=== PATIENT | female | born 1940 | race Asian ===

== ENCOUNTER 2025-03-18 00:39 | Inpatient (IN) | payer OTHER, SELFPAY ==
[2025-03-17 20:55] VITALS: BMI 18.9
[2025-03-17 20:57] VITALS: BP 138/81
[2025-03-17 21:22] VITALS: BP 141/78
[2025-03-17 21:45] LABS: Hematocrit 37.8 % (37.0-47.0); Hemoglobin 12.7 g/dL (12.0-16.0); Mean Corp Hgb Conc. 33.6 g/dL (33.0-37.0); Mean Corpuscular Volume 86.3 fL (81.0-99.0); Nucleated Red Blood Cells % 0 %; Platelet Count 177 10^3/uL (130-400); Red Cell Dist. Width 13.7 % (11.5-14.5)
[2025-03-17 22:07] LABS: ALT (SGPT) < 10 U/L (0-35); AST (SGOT) 22 U/L (14-36); Albumin 4.9 g/dl (3.5-5.0); Alkaline Phosphatase 37 U/L (38-126); Blood Urea Nitrogen 70 mg/dl (7-17); Calcium 10.2 mg/dl (8.4-10.2); Carbon Dioxide 26 mmol/L (22-30); Chloride 92 mmol/L (98-107); Estimated Creatinine Clearance 16 ml/min; Glucose 95 mg/dl (70-99); Lipase 536 U/L (23-300); Potassium 3.4 mmol/L (3.5-5.1); Sodium 134 mmol/L (135-145); Total Protein 8.5 g/dl (6.3-8.2); eGFR 27.10
[2025-03-17] MEDS: NSS 500 IV (22:14)
[2025-03-17 23:07] VITALS: BP 132/64
--- NOTE | 2025-03-17 23:09 | ED.GENMED ---
History of Present Illness
General
Chief Complaint: Abdominal Symptoms
Source: patient and family
Exam Limitations: clinical condition
Time Seen by Provider: 03/17/25 21:47
History of Present Illness
History of Present Illness:
Elderly female. Decreased p.o. intake over the last week. Severe weakness. No significant pain headache chest pain shortness of breath or other complaints
Past History
Past History
ED Past Medical History: GERD and HTN
ED Past Surgical History: Gynecological and Other (Cataracts)
Review of Systems
Review of Systems
Constitutional: Reports weight loss; Denies fever or chills
Respiratory: Reports no symptoms
Cardiac: Reports no symptoms
Phy Exam
Physical Exam
Physical Exam:
GENERAL: Alert. Elderly and frail. Generally weak appearing
EYE: Orbits normal.
NECK: Supple, no significant adenopathy.
ENT: Pharynx without erythema
CARDIAC: Regular rate and rhythm without any obvious murmurs.
LUNGS: Clear breath sounds,normal
ABDOMEN: Soft, without focal tenderness or distention
NEUROLOGICAL: Alert grossly nonfocal
SKIN: Warm and dry, no rash or lesion, no discoloration, skin intact.
MUSCULOSKELETAL: No edema,no deformity.Good color
PSYCH: Normal and appropriate interaction.
Course
Orders/Labs/Results
Orders:
Orders
03/17/25 21:34
IV Insert/Care/Rem.- Treatment PRN
03/17/25 21:37
Complete Blood Count/With Diff Urgent
Comprehensive Metabolic Panel Urgent
Lipase Urgent
03/17/25 22:06
Cardiac Monitoring- Treatment ONCE
IV Insert/Care/Rem.- Treatment PRN
0.9% Sodium Chloride 500 ml [Nss] 500 ml IV BOLUS
03/17/25 22:07
Electrocardiogram (*1) Stat
Reason for Study: Abdominal Pain
CT Abd/pel Without Iv Or Oral Urgent
Reason For Exam: Recurrent vomiting
CT Head W/o Iv Contrast Urgent
Comment:
Reason For Exam: Recurrent vomiting/anticoagulated
EKG- Treatment ONCE
03/17/25 23:00
Troponin I Urgent
03/17/25 23:34
Urinalysis Reflex To Culture Urgent
Date Specimen was Collected: 03/17/25
Time Specimen was Collected: 23:33
Urine Microscopic Reflex Cult Urgent
Urine Culture Urgent
WEST Source: U
Specimen Description:
Date Specimen was Collected: 03/17/25
Time Specimen was Collected: 23:33
03/17/25 23:45
0.9% Sodium Chloride 500 ml [Nss] 500 ml IV 150 mls/hr
03/18/25 00:07
Admit/Transfer Patient As Directed
Co-Sign Provider:
Level of Care: Inpatient admission
Assign to:: Medical/Surgical
Physician / Group: Krzysztof
Diagnosis: BERLIN
Reason for Hospitalization: failure to thrive
Expected length of stay greater than two midnights?: Yes
ELOS- Estimated Length of Stay in days: 2
I certify the patient meets the requirements for IP care: Yes
Code Status As Directed
Resuscitation Status: Full Code
PRN Pain Medication Management As Directed
May give lesser potent ordered pain med per pt: Yes
preference::
Protocol:: Medication orders for pain may be administered in a
manner that supports deferring to patient preference
when the pt is:
- Requesting an ordered lesser potent pain medication.
Least to most potent pain medications are defined
as: acetaminophen < NSAID < tramadol < opioids
(morphine, oxycodone, hydromorphone).
- Requesting a lesser dose of the same medication IF
ORDERED.
- Requesting a less intrusive route of administration
if both routes are prescribed by the provider (PO <
IV).
03/18/25 00:14
Ondansetron Injectable [Zofran] 4 mg IV NOW STA
03/18/25 01:00
Flush (0.9% Sodium Chloride) [Flush (Nss)] See Dose Instructions IV PER PROTOCOL
Abnormal Lab Results
03/17/25 03/17/25 03/17/25
21:37 23:00 23:34
MPV 11.5 H fL
(7.4-10.4)
Absolute Lymphs (auto) 1.0 L 10^3/uL
(1.2-3.4)
Neutrophils % 79.7 H %
(42.2-75.2)
Lymphocytes % 12.5 L %
(20.5-51.1)
Sodium 134 L mmol/L
(135-145)
Potassium 3.4 L mmol/L
(3.5-5.1)
Chloride 92 L mmol/L
(98-107)
BUN 70 H mg/dl
(7-17)
Creatinine 1.8 H mg/dL
(0.6-1.0)
Total Bilirubin 1.7 H mg/dl
(0.2-1.3)
Alkaline Phosphatase 37 L U/L
(38-126)
Troponin I 0.063 H* ng/ml
Total Protein 8.5 H g/dl
(6.3-8.2)
Lipase 536 H U/L
(23-300)
Urine Ketones 2+ A
(Negative)
Ur Occult Blood Reflex 1+ A
(Negative)
Leukocyte Esterase Rfl 3+ A
(Negative)
Urine Albumin (Reflex) 1+ A
(Neg - Trace)
03/17/25 21:37
03/17/25 21:37
Vital Signs
Initial and Last Documented VS:
Initial Vital Signs
Temp Pulse Resp BP Pulse Ox
98.5 F 64 15 138/81 96
03/17/25 20:57 03/17/25 20:57 03/17/25 20:57 03/17/25 20:57 03/17/25 20:57
Last Documented Vital Signs
Temp Pulse Resp BP Pulse Ox
98.5 F 71 23 141/65 98
03/17/25 20:57 03/18/25 00:30 03/18/25 00:30 03/18/25 00:00 03/18/25 00:15
*Radiology
Radiology exam reviewed: radiology read reviewed (No acute findings on the head CT. Diverticulosis. No bowel obstruction. No acute abnormalities in the abdomen or pelvis)
*Pulse Oximetry
SaO2: 98
Oxygen Mode of Delivery: Room air
Patient hypoxic: no
*EKG
Interpreted by ED Provider?: Yes
Interpretation: abnormal
Comparison EKG: changes noted
Heart Rate: 68
Rate: normal
Rhythm: sinus and PAC's
[place]: left axis deviation
Interval: normal interval
QRS Pattern: left bundle branch block
Ischemia: non-specific ST changes
*Critical Care Note
Total Time (30-74mins, 75-104mins- exclusive of procedures): Not Applicable
ED Attending Note
-
Portions of this chart may have been created with voice recognition software.� Occasional wrong word or��sound alike� substitutions may have occurred due to the inherent limitations of voice recognition software.
Discharge Plan
Departure
Patient Disposition: Admit
Date of Disposition: 03/17/25
Time of Disposition: 23:36
Presentation/result/management discussed w/ accepting MD/DO: Hospitalist
Discharge Problem:
Anorexia/weakness, Renal insufficiency/dehydration, Possible UTI
Interventions
Interventions:
*General Assessment Last Done: 03/17/25 20:57
*Neglect/Abuse Screening Last Done: 03/17/25 20:57
*ED COVID-19 Vaccine History Last Done: 03/17/25 20:57
ZT-Lirqiy-Iiszrwgvgp Assessment Last Done: 03/17/25 21:46
[2025-03-17 23:32] VITALS: BP 141/81
[2025-03-17 23:42] LABS: Urine Character Clear (Clear)
[2025-03-17 23:48] LABS: Troponin I 0.063 ng/ml
--- NOTE | 2025-03-17 23:52 | HPS.HSE ---
Family Physician
-
Family Physician: Preethi Gallardo MD
Chief Complaint
-
Intractable nausea
History of Present Illness
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
emergency department via grand for decreased p.o. intake.
According to granddaughter patient appears to have been declining over the last 2 to 3 years and specifically since COVID-19. Says she has lost weight especially in the last few months but unable to specify how much. She has decreased interaction
with family members. She also has decreased interest in activities in her food intake. Over the last 2 weeks they have noticed complaints of nausea and very minimal oral intake such that over the last 2 days she has had almost nothing to eat.
Patient reports nausea with anytime she tries to eat anything. She has not had any vomiting. She has not had any abdominal pain or diarrhea. She denies having any melena. There is no hematochezia. There are no night sweats. She has no urinary
symptoms. There is been no medication changes. She does request food but when it is brought by family she declines to eat anything. She has no episodes of difficulty chewing or having aspirations.
In the emergency department she remained afebrile with a temp of 98.5, blood pressure was 140/80 with a pulse of 72 and she is satting 98% on room air. CBC was unremarkable. Electrolytes notable for a sodium of 134 and a potassium of 3.4 with BUN
of 70 and creatinine of 1.8. She had a lipase of 530, total bilirubin of 4.7 otherwise normal LFTs. Albumin was 5 with a total protein of 8.5. Calcium was normal.
UA is pending. ECG shows a sinus rhythm at 68 with left bundle branch block
Medical History
Past Medical History
Past Medical History: Reports Arrhythmia, GERD, HTN, Hypercholesterolemia and Psychiatric
Past Surgical History: Reports None
Social History
Tobacco: Non-smoker
Alcohol: None
Drug: None
Living: With Family
Employment: Retired
Family History
Family History: Not pertinent
Allergies / Home Medications
Allergies reflects when Allergies were last updated in [facility]reads.
Home Medications with original date entered in [facility]reads
Allergy/Medication List:
Allergies
Allergy/AdvReac Type Severity Reaction Status Date / Time
NKA - No Known Allergies Allergy Uncoded 12/08/07 19:39
Lovastatin 20 MG TAKE 1 TABLET BY MOUTH EVERY DAY for 90 Active
Eliquis 5 MG TAKE 1 TABLET BY ORAL ROUTE 2 TIMES EVERY DAY for 90 days Active
Erythromycin .5% apply 1 cm ribbon to right eye topical up to 6 times/day Active
Felodipine ER 5 MG TAKE 1 TABLET BY MOUTH EVERY DAY for 90 days Active
Flonase 50 MCG/ACT 2 spray in each nostril Nasally Once a day for 90 days December, Active
Metoprolol Tartrate 25 MG TAKE 1 TABLET BY MOUTH TWICE A DAY for 90 No further refills without visit. Active
Triamterene-HCTZ 37.5-25 MG TAKE 1 CAPSULE BY MOUTH EVERY DAY IN THE MORNING for 90 Active
Omeprazole 20 MG TAKE 1 CAPSULE BY MOUTH 30 MINUTES BEFORE MORNING MEAL EVERY DAY for 90 days Active
Review of Systems
-
Unable to obtain full review of systems at this time due to: Language Barrier
History Source: Family
Constitutional: Reports Weight Loss
EENT: Reports No Symptoms
Respiratory: Reports No Symptoms
Cardiac: Reports No Symptoms
Abdomen/GI: Reports Nausea and Anorexia
: Reports No Symptoms
Musculoskeletal: Reports No Symptoms
Skin: Reports No Symptoms
Neurological: Reports No Symptoms
Endocrine: Reports No Symptoms
Hematologic/Lymphatic: Reports No Symptoms
Psych: Reports Depression
Physical Exam
Vital Signs
Vital Signs
Temp Pulse Resp BP Pulse Ox
98.5 F 68 15 141/81 98
03/17/25 20:57 08/02/25 23:45 03/17/25 23:09 03/17/25 23:32 03/17/25 23:45
Physical Exam
General: No Apparent Distress; No Well Nourished
HEENT: NormoCephalic, Anicteric, Atraumatic and PERRLA; No Pharyngeal Erythema
Respiratory: Clear
Cardiac: S1/S2 and Regular Rhythm; No Murmur or Rub
GI: Soft, Non Tender, Non Distended and Normal Bowel Sounds; No Organomegaly
Rectal: Deferred by Provider
Musculoskeletal: No Clubbing, No Cyanosis and No Edema
Skin: No Rash
Neuro: Nonfocal/grossly intact
Hematologic/Lymphatic: No Lymphadenopathy
Psych: Anxious
Laboratory Results
-
03/17/25 21:37
03/17/25 21:37
Laboratory Results
Total Bilirubin 1.7 mg/dl (0.2-1.3) H 03/17/25 21:37
AST 22 U/L (14-36) 03/17/25 21:37
ALT < 10 U/L (0-35) 03/17/25 21:37
Alkaline Phosphatase 37 U/L (38-126) L 03/17/25 21:37
Troponin I 0.063 ng/ml H* 03/17/25 23:00
Lipase 536 U/L (23-300) H 03/17/25 21:37
Data Reviewed
-
CT Scan: Report Reviewed by me
Medical Tests (Nuc Med, Echo, EKG etc): Image Personally Visualized and interpreted
Lab Data: Labs Reviewed by me
Old Records: Reviewed
Impression/Plan
-
IMPRESSION:
84-year-old female with past medical history significant for hypertension, hyperlipidemia, atrial fibrillation on anticoagulation presenting to the emergency department with intractable nausea and refusing to eat at home. She is found to have BERLIN
as well as some elevation in lipase with mild total bilirubin elevation to 1.7. CBC is unremarkable. UA is pending. No cardiac symptoms and ECG is unremarkable. CT of the head shows no acute cranial process. CT of the abdomen and pelvis shows
no acute intra-abdominal process.
PLAN:
1. BERLIN -prerenal azotemia stemming from dehydration in the setting of decreased p.o. intake. No fluid losses.
- admit to med/surg
- continue with D5 NS
- check cpk
- renal dose medications
- hold triamterene-hctz for now
- avoid nephrotoxins
2. Nausea - Intractable nasuea versus loss of appetite
- trial of famotidine and ppi
- antiemetics
- IV fluids as above
3. Low appetite - suspect element of depression
- nutritional supplements
- thiamine/folate as above
- check tsh
- trial of mirtazapine
4. AFIB -
- continue metoprlol
- eliqis to 2.5 bid
5. Elevated lipase - Unlikely acute pancreatitis, no abdominal pain.
- repeat lipase after hydration
DVT PPX - on eliquis
Code status - Full Code
[2025-03-18] VITALS (8 sets, daily range): BP systolic 106–141; BP diastolic 51–73; PULSE 57–63; BMI 19.1
[2025-03-18] MEDS: NSS 500 IV (00:11)
[2025-03-18] MEDS: ZOFRAN 4 MG IV (00:40)
[2025-03-18 01:09] LABS: Urine Squamous Cell >30 /LPF (Few); Urine Urothelial Cell >30 /LPF (FEW); Urine White Cell >100 /HPF (0-5)
[2025-03-18] MEDS: KCL 160 MEQ IV (02:25)
[2025-03-18] MEDS: D5/0.9% SODIUM CHLORIDE 1000 IV ×2 (02:25→14:48)
[2025-03-18 07:34] LABS: Hematocrit 36.5 % (37.0-47.0); Hemoglobin 12.3 g/dL (12.0-16.0); Mean Corp Hgb Conc. 33.7 g/dL (33.0-37.0); Mean Corpuscular Volume 88.6 fL (81.0-99.0); Platelet Count 159 10^3/uL (130-400); Red Cell Dist. Width 13.7 % (11.5-14.5)
[2025-03-18 07:57] LABS: Blood Urea Nitrogen 52 mg/dl (7-17); Calcium 9.0 mg/dl (8.4-10.2); Carbon Dioxide 30 mmol/L (22-30); Chloride 98 mmol/L (98-107); Estimated Creatinine Clearance 18 ml/min; Glucose 118 mg/dl (70-99); Lipase 615 U/L (23-300); Potassium 3.0 mmol/L (3.5-5.1); Sodium 138 mmol/L (135-145); eGFR 31.21
[2025-03-18 07:58] LABS: Prealbumin (Transthyretin) 18.8 mg/dl (17.6-36.0)
[2025-03-18 08:30] LABS: TSH 0.04 uIU/ml (0.47-4.68)
[2025-03-18 09:06] LABS: Folate 5.7 ng/ml (2.76-20); Vitamin B12 545 pg/ml (239-931)
[2025-03-18] MEDS: LOPRESSOR 25 MG PO ×2 (10:02→21:53)
[2025-03-18] MEDS: ELIQUIS 2.5 MG PO ×2 (10:02→21:55)
[2025-03-18] MEDS: THIAMINE INJECTION 100 MG IV (10:02)
[2025-03-18] MEDS: PROTONIX 40 MG PO (10:02)
[2025-03-18] MEDS: FOLVITE 1 MG PO (10:02)
[2025-03-18] MEDS: PLENDIL EXTENDED RELEASE 5 MG PO (10:05)
[2025-03-18] MEDS: ROCEPHIN 1000 MG IV (10:06)
[2025-03-18] MEDS: STERILE WATER FOR INJECTION 10 ML IV (10:06)
[2025-03-18] MEDS: KCL 270 MEQ IV (10:06)
[2025-03-18] MEDS: KCL ELIXIR 40 MEQ PO (10:06)
--- NOTE | 2025-03-18 12:57 | W.PN.HOSP.TC ---
Today's Communication/Plan
-
Empiric Abx
F/u Cultures
ECHO
Trend Trop
RUQ Sono
GOC
IVF
F/u Free t4
Assessment / Plan
Assessment / Plan
Physical Exam
General: No Apparent Distress; No Well Nourished
HEENT: NormoCephalic, Anicteric, Atraumatic and PERRLA; No Pharyngeal Erythema
Respiratory: Clear
Cardiac: S1/S2 and Regular Rhythm; No Murmur or Rub
GI: Soft, Non Tender, Non Distended and Normal Bowel Sounds; No Organomegaly
Rectal: Deferred by Provider
Musculoskeletal: No Clubbing, No Cyanosis and No Edema
Skin: No Rash
Neuro: Nonfocal/grossly intact; AAOx1
Hematologic/Lymphatic: No Lymphadenopathy
Psych: Anxious
IMPRESSION:
84-year-old female with past medical history significant for hypertension, hyperlipidemia, atrial fibrillation on anticoagulation; ?Dementia, presenting to the emergency department with intractable nausea and refusing to eat at home. She is found
to have BERLIN as well as some elevation in lipase with mild total bilirubin elevation to 1.7. CBC is unremarkable. UA is pending. No cardiac symptoms and ECG is unremarkable. CT of the head shows no acute cranial process. CT of the abdomen and
pelvis shows no acute intra-abdominal process.
PLAN:
#BERLIN v CKD
-Most likely prerenal azotemia stemming from dehydration in the setting of decreased p.o. intake.
- Can continue with D5 NS as not eating
- renal dose medications
- hold triamterene-hctz
- avoid nephrotoxins
-Monitor
#?UTI
-initiate empiric abx
-f/u cultures
#Acute v Acute on Chronic Metabolic Encephalopathy
-Worsening dementia +/- Infectious etiology (?UTI)
- TSH low - f/u reflex free t4
-Treat as above w/ abx
-GOC
-Has had chronic deterioration of memory over the last few months
#Hypokalemia
- Monitor and replete
#Low troponin
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
� Trend troponins until peak
� No chest pain
- F/u ECHO
#Nausea - Intractable nasuea versus loss of appetite
- trial of famotidine and ppi
- antiemetics
- IV fluids as above
-Lipase mildly elevated but not sig - CT imaging unremarkable
-with Elev Bili, f/u RUQ Sono, Direct Bili
#Low appetite - suspect element of depression
- nutritional supplements
- thiamine/folate as above
- F/u free t4
- trial of mirtazapine
#AFIB -
- continue metoprolol
- Eliquis to 2.5 bid
# Elevated lipase - Unlikely acute pancreatitis, no abdominal pain.
--see plan above
DVT PPX - on eliquis
Code status - Full Code
Total time spent on today's encounter was 51 minutes which included time spent in counseling the patient/family regarding diagnosis and treatment plan as listed above, goals of care, and symptom management. Case was discussed with nursing staff,
specialists, and care coordinators/case management. All labs and imaging personally reviewed by me. Remainder the time spent in detailed review of previous records, lab data, imaging, and other medical provider documentation.
Anticipated Discharge: 24 - 48 hours
Subjective/Interval History
-
Date of Service: March 18, 2025
no acute events
Objective Data
-
Labs:
Laboratory Results
03/18/25
07:05
WBC 7.5
Hgb 12.3
Hct 36.5 L
Plt Count 159
Sodium 138
Potassium 3.0 L
Chloride 98
Carbon Dioxide 30
BUN 52 H
Creatinine 1.6 H
Glucose 118 H
Calcium 9.0
Vital Signs:
Vital Signs
Temp Pulse Resp BP Pulse Ox
97.7 F 60 16 134/69 99
03/18/25 07:37 03/18/25 07:37 03/18/25 07:37 03/18/25 07:37 03/18/25 07:37
I&O
03/17/25 03/18/25 03/19/25
06:59 06:59 06:59
Intake Total 120 / 120
Balance 120 / 120
Review of Systems
-
History Source: Patient
All other systems: Not reviewed unless documented
Data Reviewed
-
CT Scan: Report Reviewed by me
Labs: Labs Reviewed by me
--- NOTE | 2025-03-18 15:07 | PTCARENOTE ---
Patient OOB to bathroom with assist x1. Patient is weak and unsteady. Family stays with patient 08/03. Patient speaks Mongolian, family at bedside to translate. Patient is only oriented to her self per family. Patient has been confused for quite a
while per son. Patient is tolerating 10% of meals, only eating part of a biscuit and water.
[2025-03-18 15:47] LABS: Troponin I 0.062 ng/ml
[2025-03-18] MEDS: PEPCID 20 MG IV (21:54)
[2025-03-18] MEDS: REMERON 7.5 MG PO (21:54)
[2025-03-18] MEDS: NSS (PRESERVATIVE FREE) 8 ML IV (21:54)
[2025-03-18 23:03] LABS: Troponin I 0.046 ng/ml
--- NOTE | 2025-03-19 01:24 | PTCARENOTE ---
Addendum entered by Kanika Nguyen RN 03/19/25 01:33:
Cantonese night warehouse selector utilized
Original Note:
Pt agitated, trying to get OOB, undress, pantomiming tears/crying. flyer repairer utilized, pt verbalizing wanting to go to [facility] alone and does not want any help because she is spanish and that's no how they do things. Repeating the same
thing to the night warehouse selector, unable to reorient successfully. Assisted back to bed, pt apologizing and tearful. Bed alarm active for safety.
[2025-03-19] MEDS: D5/0.9% SODIUM CHLORIDE 1000 IV ×2 (03:34→23:05)
[2025-03-19 06:00] VITALS: BMI 18.9
[2025-03-19 07:33] VITALS: BP 125/67
--- NOTE | 2025-03-19 07:33 | W.PN.HOSP.TC ---
Today's Communication/Plan
-
cont IVF, abx
Replete Electrolytes
Rispderal 1:1 prn agitation, avoid restraints as possible
cont Mirtazapine HS
Assessment / Plan
Assessment / Plan
Physical Exam
General: No Apparent Distress; Appears relatively comfortable, skinny appearance
HEENT: NormoCephalic, Anicteric, Atraumatic and PERRLA
Respiratory: Clear to auscultation b/l
Cardiac: S1/S2 and Regular Rhythm; No Murmur or Rub
GI: Soft, Non Tender, Non Distended and Normal Bowel Sounds
Musculoskeletal: No Clubbing, No Cyanosis and No Edema
Skin: No Rash
Neuro: AAOx1 oriented only to self, confused
Psych: Relatively calm but sundowning as day progresses
IMPRESSION:
84F HTN, HLD, afib Eliquis, Dementia (not formally diagnosed per family but evidence cognitive decline past few months), p/w intractable nausea and refusing to eat at home. Found to have BERLIN as well as some elevation in lipase with mild total
bilirubin elevation to 1.7. CBC unremarkable. UA noted possible UTI. CT of the head showed no acute cranial process. CT of the abdomen and pelvis showed no acute intra-abdominal process.
PLAN:
#BERLIN
- Cr high 1.8 trending down
- Most likely prerenal azotemia stemming from dehydration in the setting of decreased p.o. intake.
- cont IVF D5NS, poor oral intake
- renal dose medications
- hold home triamterene-hctz
- avoid nephrotoxins
- Monitor
#Possible UTI
-started on Ceftriaxone 03/18, transitioned to Augmentin
-f/u urine culture
#Acute v Acute on Chronic Metabolic Encephalopathy
- possible Worsening dementia +/- Infectious etiology (UTI), possibly compounded with hospital associated delirium
-TSH low but T4 wnl
-cont Abx as above
-GOC
-had chronic deterioration of memory over the last few months as per family
-1:1 prn agitation/confusion, risperdal prn, avoid restraints if possible (likely to exacerbate confusion/agitation)
#Hypokalemia
- Monitor and replete
#Troponin elevation
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
� Troponin peak 0.063 since trended down
� Denies chest pain
- ECHO appreciated EF 50% severe tricuspid regurgitation
#Nausea - Intractable nasuea versus loss of appetite
- trial of famotidine and ppi
- antiemetics
- IV fluids as above
-Lipase mildly elevated but not sig - CT imaging and Abd US unremarkable
#Low appetite - suspect element of depression
- nutritional supplements
- thiamine/folate as above
- trial of mirtazapine
- police commanding officer jeanneal appreciated moderate protein calorie Malnutrition
#Hypokalemia
#Hypophosphatemia
#Hypomagnesemia
Possible Refeeding syndrome
monitor and replete electrolytes as necessary
#QT Prolongation
since significantly improved/resolved following repletion electrolytes
#AFIB
- continue metoprolol
- Eliquis to 2.5 bid
DVT PPX - on eliquis
Code status - Full Code
Discussed with patient (family providing Cantonese Translation), patient's son Rk, and patient's Granddaughter Ilda (police commanding officer)
I spent a total of 50 minutes with the patient or on the floor. More than 50% of this time involved counseling and coordination of care.
Anticipated Discharge: 24 - 48 hours
Subjective/Interval History
-
Date of Service: March 19, 2025
No acute distress, appears relatively comfortable, some confusion noted throughout the day, . Patient removed her IV twice this morning. Family (son Rk) at bedside providing Cantonese translation.
Objective Data
-
Labs:
Laboratory Results
03/19/25
06:00
WBC Pending
Hgb Pending
Hct Pending
Plt Count Pending
Sodium Pending
Potassium Pending
Chloride Pending
Carbon Dioxide Pending
BUN Pending
Creatinine Pending
Glucose Pending
Calcium Pending
Total Bilirubin Pending
AST Pending
ALT Pending
Alkaline Phosphatase Pending
Vital Signs:
Vital Signs
Temp Pulse Resp BP Pulse Ox
97.4 F 61 14 125/67 99
03/19/25 07:33 03/19/25 07:33 03/19/25 07:33 03/19/25 07:33 03/19/25 07:33
I&O
03/18/25 03/19/25 03/20/25
06:59 06:59 06:59
Intake Total 120 / 120 1250 / 1250
Balance 120 / 120 1250 / 1250
[2025-03-19] MEDS: ELIQUIS 2.5 MG PO ×2 (08:40→21:14)
[2025-03-19] MEDS: LOPRESSOR 25 MG PO (08:42)
[2025-03-19] MEDS: FOLVITE 1 MG PO (08:42)
[2025-03-19] MEDS: PROTONIX 40 MG PO (08:42)
[2025-03-19] MEDS: PLENDIL EXTENDED RELEASE 5 MG PO (08:42)
[2025-03-19 09:03] LABS: Hematocrit 42.4 % (37.0-47.0); Hemoglobin 13.6 g/dL (12.0-16.0); Mean Corp Hgb Conc. 32.1 g/dL (33.0-37.0); Mean Corpuscular Volume 90.0 fL (81.0-99.0); Platelet Count 190 10^3/uL (130-400); Red Cell Dist. Width 13.9 % (11.5-14.5)
[2025-03-19 09:39] LABS: AST (SGOT) 25 U/L (14-36); Albumin 4.3 g/dl (3.5-5.0); Alkaline Phosphatase 35 U/L (38-126); Blood Urea Nitrogen 34 mg/dl (7-17); Calcium 9.0 mg/dl (8.4-10.2); Carbon Dioxide 23 mmol/L (22-30); Chloride 103 mmol/L (98-107); Estimated Creatinine Clearance 20 ml/min; Glucose 99 mg/dl (70-99); Potassium 2.8 mmol/L (3.5-5.1); Sodium 141 mmol/L (135-145); Total Protein 7.7 g/dl (6.3-8.2); eGFR 36.64
[2025-03-19] MEDS: THIAMINE INJECTION IV (09:42)
[2025-03-19 10:24] LABS: ALT (SGPT) < 30 U/L (0-35)
[2025-03-19 10:44] LABS: Magnesium 1.5 mg/dl (1.6-2.3)
[2025-03-19] MEDS: AUGMENTIN 500 MG/125 MG 1 TABLET PO ×2 (11:07→21:13)
[2025-03-19] MEDS: KCL 40 MEQ PO (11:07)
[2025-03-19] MEDS: MAGNESIUM OXIDE 500 MG PO (11:07)
[2025-03-19] MEDS: VITAMIN B1 100 MG PO (11:07)
[2025-03-19] MEDS: MAGNESIUM SULFATE 50 IV (11:57)
[2025-03-19 12:47] LABS: HDL Cholesterol 53 mg/dl; LDL Cholesterol, Calculated 69 mg/dl; Very Low Density Lipoprotein 33 mg/dl (0-30)
[2025-03-19] MEDS: POTASSIUM PHOSPHATE 259.0909 MEQ IV (15:17)
[2025-03-19 15:41] VITALS: BMI 18.9
[2025-03-19 15:53] VITALS: BP 122/71
--- NOTE | 2025-03-19 16:04 | CM ---
Pt lives with her daughter and other family members in a 2 story home. No entry steps through the garage and the front door. Family stay with patient 08/03 due to her inability to manage on her own. Pt has been confused 'for quite awhile' per son.
She has not been eating much, maybe eating 10% of her meals.
Consult received for advance directive for this patient. This patient is not able to complete an advance directive due to her cognitive status. Next of kin would be the decision maker.
Goals of Care discussion is a consideration at this time.
CM will continue to follow to assist with coordination of discharge plan.
[2025-03-19] MEDS: ATIVAN 0.25 MG PO (17:11)
[2025-03-19 20:37] LABS: Blood Urea Nitrogen 27 mg/dl (7-17); Calcium 8.1 mg/dl (8.4-10.2); Carbon Dioxide 26 mmol/L (22-30); Chloride 105 mmol/L (98-107); Estimated Creatinine Clearance 23 ml/min; Glucose 77 mg/dl (70-99); Magnesium 2.3 mg/dl (1.6-2.3); Potassium 3.7 mmol/L (3.5-5.1); Sodium 140 mmol/L (135-145); eGFR 44.08
[2025-03-19 21:11] VITALS: BP 124/67
[2025-03-19] MEDS: KCL 20 MEQ PO (21:14)
[2025-03-19] MEDS: LOPRESSOR 12.5 MG PO (21:15)
[2025-03-19] MEDS: PEPCID 10 MG PO (21:15)
[2025-03-19] MEDS: REMERON 7.5 MG PO (21:16)
[2025-03-20] MEDS: RISPERDAL 0.25 MG PO ×5 (00:07→23:18)
[2025-03-20 00:09] VITALS: BP 131/68
[2025-03-20 08:00] VITALS: BP 118/55
--- NOTE | 2025-03-20 08:00 | W.PN.HOSP.TC ---
Today's Communication/Plan
-
Dietary supplement
Risperdal scheduled and prn
IVF support
PT/OT
Assessment / Plan
Assessment / Plan
Physical Exam
General: No Apparent Distress; Appears relatively comfortable, skinny appearance
HEENT: NormoCephalic, Anicteric, Atraumatic and PERRLA
Respiratory: Clear to auscultation b/l
Cardiac: S1/S2 and Regular Rhythm; No Murmur or Rub
GI: Soft, Non Tender, Non Distended and Normal Bowel Sounds
Musculoskeletal: No Clubbing, No Cyanosis and No Edema
Skin: No Rash
Neuro: Lethargic arousable, oriented only to self, confused
Psych: Relatively calm but sundowning as day progresses
IMPRESSION:
84F HTN, HLD, afib Eliquis, Dementia (not formally diagnosed per family but evidence cognitive decline past few months), p/w intractable nausea and refusing to eat at home. Found to have BERLIN as well as some elevation in lipase with mild total
bilirubin elevation to 1.7. CBC unremarkable. UA noted possible UTI. CT of the head showed no acute cranial process. CT of the abdomen and pelvis showed no acute intra-abdominal process.
PLAN:
#BERLIN
- Cr high 1.8 trending down/resolving
- Most likely prerenal azotemia stemming from dehydration in the setting of decreased p.o. intake.
- cont IVF D5NS, poor oral intake
- renal dose medications
- hold home triamterene-hctz
- avoid nephrotoxins
- Monitor
#Possible UTI
-started on Ceftriaxone 03/18, transitioned to Augmentin
-urine culture noted no significant growth
#Acute v Acute on Chronic Metabolic Encephalopathy
- possible Worsening dementia +/- Infectious etiology (UTI), possibly compounded with hospital associated delirium
-TSH low but T4 wnl
-cont Abx as above
-had chronic deterioration of memory over the last few months as per family
-1:1 prn agitation/confusion, risperdal prn and scheduled 0.25 qpm, avoid restraints if possible (likely to exacerbate confusion/agitation)
#Hypokalemia
- Monitor and replete
#Troponin elevation
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
� Troponin peak 0.063 since trended down
� Denies chest pain
- ECHO appreciated EF 50% severe tricuspid regurgitation
#Nausea - Intractable nasuea versus loss of appetite
- trial of famotidine and ppi
- antiemetics
- IV fluids as above
- Lipase mildly elevated but not sig - CT imaging and Abd US unremarkable
#Low appetite - suspect element of depression
- nutritional supplements
- thiamine/folate as above
- trial of mirtazapine
- mine safety director eval appreciated moderate protein calorie Malnutrition
#Hypokalemia
#Hypophosphatemia
#Hypomagnesemia
Possible Refeeding syndrome
monitor and replete electrolytes as necessary
#QT Prolongation
since significantly improved/resolved following repletion electrolytes
#paroxysmal Afib
- continue metoprolol
- Eliquis to 2.5 bid
DVT PPX - on eliquis
Code status - Full Code
Discussed with patient's son Rk, and patient's Granddaughter Jerri (mine safety director)
I spent a total of 45 minutes with the patient or on the floor. More than 50% of this time involved counseling and coordination of care.
Anticipated Discharge: 24 - 48 hours
Subjective/Interval History
-
Date of Service: March 20, 2025
Confused lethargic. Son Rk and daughter Jerri present during evaluation
Objective Data
-
Labs:
Laboratory Results
03/19/25 03/20/25
20:10 06:00
WBC Pending
Hgb Pending
Hct Pending
Plt Count Pending
Sodium 140 Pending
Potassium 3.7 D Pending
Chloride 105 Pending
Carbon Dioxide 26 Pending
BUN 27 H Pending
Creatinine 1.2 H Pending
Glucose 77 Pending
Calcium 8.1 L Pending
Vital Signs:
Vital Signs
Temp Pulse Resp BP Pulse Ox
97.5 F 60 18 131/68 99
03/20/25 00:09 03/20/25 00:09 03/20/25 00:09 03/20/25 00:09 03/20/25 00:09
I&O
03/19/25 03/20/25 03/21/25
06:59 06:59 06:59
Intake Total 1250 / 1250 840 / 840
Balance 1250 / 1250 840 / 840
[2025-03-20] MEDS: FOLVITE 1 MG PO (09:36)
[2025-03-20] MEDS: VITAMIN B1 100 MG PO (09:36)
[2025-03-20] MEDS: KCL 20 MEQ PO (09:37)
[2025-03-20] MEDS: PROTONIX 40 MG PO (09:37)
[2025-03-20] MEDS: PLENDIL EXTENDED RELEASE 5 MG PO (09:37)
[2025-03-20] MEDS: AUGMENTIN 500 MG/125 MG 1 TABLET PO (09:37)
[2025-03-20] MEDS: ELIQUIS 2.5 MG PO (09:37)
[2025-03-20] MEDS: LOPRESSOR 12.5 MG PO (09:38)
[2025-03-20] MEDS: D5/0.9% SODIUM CHLORIDE 1000 IV ×2 (11:46→22:40)
--- NOTE | 2025-03-20 12:24 | CM ---
Patient seen at bedside with son London & grand-daughter Jerri
patient speaks Cantonese
PT/OT ordered
Await evals
PLAN: TBD, Await PT/OT evals, CM to follow for needs
[2025-03-20 12:38] VITALS: BP 105/65; PULSE 78
[2025-03-20 13:19] LABS: Hematocrit 39.2 % (37.0-47.0); Hemoglobin 13.3 g/dL (12.0-16.0); Mean Corp Hgb Conc. 33.9 g/dL (33.0-37.0); Mean Corpuscular Volume 86.7 fL (81.0-99.0); Platelet Count 163 10^3/uL (130-400); Red Cell Dist. Width 14.4 % (11.5-14.5)
--- NOTE | 2025-03-20 14:15 | PN.CDI ---
CDI
- -
CDI:
Physician Documentation Request
Admit Date: 03/18/25 00:39
Dear Doctor Abdifatah,
Patient presented with decrease PO intake. Noted history of atrial fibrillation on metoprolol and eliquis.
03/17 and 03/19 signed EKGs show sinus rhythm.
Please provide further specificity regarding atrial fibrillation:
Paroxysmal atrial fibrillation - terminates spontaneously or with intervention within 7 days of onset
Persistent atrial fibrillation - episodes of continuous AF that last more than 7 days and do not self-terminate
Other - please specify
Use of terms such as suspected, likely, concern for, or probable (associated with a specific diagnosis that is being evaluated, monitored, or treated as if it exists) are acceptable and can be coded in the inpatient setting, when documented at the
time of discharge.
Thank you,
Mandy Huang RN, BSN
CDI Specialist
tiger text
Please use your independent medical judgment in providing your response.
[2025-03-20 15:55] VITALS: BP 101/64
[2025-03-20 16:28] LABS: Blood Urea Nitrogen 20 mg/dl (7-17); Calcium 8.1 mg/dl (8.4-10.2); Carbon Dioxide 26 mmol/L (22-30); Chloride 108 mmol/L (98-107); Estimated Creatinine Clearance 28 ml/min; Glucose 96 mg/dl (70-99); Magnesium 1.9 mg/dl (1.6-2.3); Potassium 3.6 mmol/L (3.5-5.1); Sodium 141 mmol/L (135-145); eGFR 54.87
[2025-03-20] MEDS: LOPRESSOR PO (22:22)
[2025-03-20] MEDS: REMERON 7.5 MG PO (22:42)
[2025-03-20] MEDS: AUGMENTIN 500 MG/125 MG PO ×2 (22:42→22:54)
[2025-03-20] MEDS: PEPCID PO (22:48)
[2025-03-20] MEDS: KCL PO (22:48)
[2025-03-20] MEDS: ELIQUIS PO (22:48)
[2025-03-20] MEDS: NEUTRA-PHOS POWDER PACKET PO (22:53)
[2025-03-21 02:00] VITALS: BP 143/79
--- NOTE | 2025-03-21 07:34 | W.PN.HOSP.TC ---
Today's Communication/Plan
-
Risperdal increased to 0.5 mg qpm
IVF completed
neg urine cx, abx discontinued, monitor off
discharge planning
Assessment / Plan
Assessment / Plan
Physical Exam
General: No Apparent Distress; Appears relatively comfortable, skinny appearance
HEENT: NormoCephalic, Anicteric, Atraumatic and PERRLA
Respiratory: Clear to auscultation b/l
Cardiac: S1/S2 and Regular Rhythm; No Murmur or Rub
GI: Soft, Non Tender, Non Distended and Normal Bowel Sounds
Musculoskeletal: No Clubbing, No Cyanosis and No Edema
Skin: No Rash
Neuro: Lethargic arousable, oriented only to self, confused
Psych: Relatively calm but sundowning as day progresses
IMPRESSION:
84F HTN, HLD, afib Eliquis, Dementia (not formally diagnosed per family but evidence cognitive decline past few months), p/w intractable nausea and refusing to eat at home. Found to have BERLIN as well as some elevation in lipase with mild total
bilirubin elevation to 1.7. CBC unremarkable. UA noted possible UTI. CT of the head showed no acute cranial process. CT of the abdomen and pelvis showed no acute intra-abdominal process.
PLAN:
#BERLIN
- Cr high 1.8 trending down/resolving
- Most likely prerenal azotemia stemming from dehydration in the setting of decreased p.o. intake.
- IVF D5NS completed
- hold home triamterene-hctz, would dc on discharge, bp well controlled without
- avoid nephrotoxins
- Monitor
#Possible UTI less likely/ruled out
-started on Ceftriaxone 03/18, transitioned to Augmentin
-urine culture noted no significant growth
-abx discontinued, monitor off
#Acute v Acute on Chronic Metabolic Encephalopathy
- possible Worsening dementia +/- Infectious etiology (UTI), likely compounded with hospital associated delirium
- TSH low but T4 wnl
- had chronic deterioration of memory over the last few months as per family
- 1:1 prn agitation/confusion, risperdal prn and scheduled 0.25 qpm increased to 0.5 qpm, avoid restraints if possible (likely to exacerbate confusion/agitation)
#Hypokalemia
- Monitor and replete
#Troponin elevation
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
� Troponin peak 0.063 since trended down
� Denies chest pain
- ECHO appreciated EF 50% severe tricuspid regurgitation
#Nausea - Intractable nasuea versus loss of appetite
- trial of famotidine and ppi
- antiemetics
- IV fluids as above
- Lipase mildly elevated but not sig - CT imaging and Abd US unremarkable
#Low appetite - suspect element of depression
- nutritional supplements
- thiamine/folate as above
- trial of mirtazapine
- car hiker tobin appreciated moderate protein calorie Malnutrition
#Hypokalemia
#Hypophosphatemia
#Hypomagnesemia
Possible Refeeding syndrome
monitor and replete electrolytes as necessary
#QT Prolongation
since significantly improved/resolved following repletion electrolytes
#paroxysmal Afib
- continue metoprolol
- Eliquis to 2.5 bid
DVT PPX - on eliquis
Code status - Full Code
Discussed with patient's son Rk and patient's Granddaughter Jerri (car hiker)
I spent a total of 40 minutes with the patient or on the floor. More than 50% of this time involved counseling and coordination of care.
Anticipated Discharge: 24 - 48 hours
Subjective/Interval History
-
Date of Service: March 21, 2025
Altered mental status persists. Fluctuating throughout the day. Refused morning meds. Couldn't recognize her granddaughter Jerri
Objective Data
-
Labs:
Laboratory Results
03/21/25
06:00
WBC Pending
Hgb Pending
Hct Pending
Plt Count Pending
Sodium Pending
Potassium Pending
Chloride Pending
Carbon Dioxide Pending
BUN Pending
Creatinine Pending
Glucose Pending
Calcium Pending
Vital Signs:
Vital Signs
Temp Pulse Resp BP Pulse Ox
98.6 F 105 18 143/79 94
03/21/25 02:00 03/21/25 02:00 03/21/25 02:00 03/21/25 02:00 03/21/25 02:00
I&O
03/20/25 03/21/25 03/22/25
06:59 06:59 06:59
Intake Total 840 / 840 1200 / 1200 120 / 120
Balance 840 / 840 1200 / 1200 120 / 120
[2025-03-21 09:29] VITALS: BP 123/86
[2025-03-21] MEDS: D5/0.9% SODIUM CHLORIDE 1000 IV (09:29)
[2025-03-21] MEDS: KCL PO (09:30)
[2025-03-21] MEDS: NEUTRA-PHOS POWDER PACKET 250 MG PO ×3 (09:31→17:05)
[2025-03-21] MEDS: LOPRESSOR PO ×3 (10:18→22:27)
[2025-03-21] MEDS: FOLVITE PO (10:18)
[2025-03-21] MEDS: ELIQUIS PO ×3 (10:18→22:27)
[2025-03-21] MEDS: AUGMENTIN 500 MG/125 MG PO (10:18)
[2025-03-21] MEDS: VITAMIN B1 PO (10:19)
[2025-03-21] MEDS: PROTONIX PO (10:19)
[2025-03-21] MEDS: PLENDIL EXTENDED RELEASE PO (10:19)
[2025-03-21] MEDS: RISPERDAL 0.25 MG PO (13:21)
--- NOTE | 2025-03-21 14:53 | CM ---
Addendum entered by Sharifa Carrillo 03/21/25 16:45:
Family had identified [facility] in [facility] as a possible option if 24/7 care cannot be arranged. Referral sent via [employer]. ALISSON to f/u with family in AM to determine final plan.
Addendum entered by Sharifa Carrillo 03/21/25 15:04:
ALISSON spoke with Helene Muir Coordinator for '[place] patients'. She has contacted pt's family who will need to call the insurance company to request the additional hours. Helene provided them with the information they need for the request.
Pt's daughter (not the one who has been visiting) takes care of the insurance issues and will be contacting the insurance company to request the additional hours.
[facility] has staff on standby for tomorrow night pending insurance approval.
Anticipate discharge tomorrow with [facility].
Original Note:
ALISSON met with pt and family. They advised that Daly will be returning home at discharge with [facility] who have been providing 10 hours of caregiver services and are requesting 24 hour care due to her confusion. Per family, they were
advised by a doctor that it would likely be helpful for Daly to return to her familiar setting which may reverse some of the confusion she is experiencing.
ALISSON called [facility] to discuss family request. They are going to review with the team and call me back. I also left a message for the coordinator (Elizabeth Guzman) about the family request for [address] services[address] Gardiner updated via [facility]; anticipate discharge on Wednesday.
[2025-03-21 16:03] VITALS: BP 118/68
[2025-03-21] MEDS: RISPERDAL 0.5 MG PO (17:50)
[2025-03-21] MEDS: REMERON PO ×2 (21:01→22:27)
[2025-03-21] MEDS: NEUTRA-PHOS POWDER PACKET PO ×2 (21:02→22:27)
--- NOTE | 2025-03-22 05:57 | PTCARENOTE ---
Addendum entered by Farida Hunt RN 03/22/25 06:42:
SENIOR MORTGAGE UNDERWRITER ok'd pt not having another IV placed.
Original Note:
Pt refusing medications and all care. Pt screams, pulls away and becomes tearful when staff approach. Unable to obtain vital signs. Pt pulled out IV. Language line utilized although pt would not communicate back. bed alarm intact. plan of care
ongoing.
[2025-03-22 06:23] VITALS: BMI 20.1
--- NOTE | 2025-03-22 07:29 | W.PN.HOSP.TC ---
Today's Communication/Plan
-
Safe discharge planning, possible discharge tomorrow when family can arranged 24/ supervision
Psych eval
Assessment / Plan
Assessment / Plan
Physical Exam
General: No Apparent Distress; Appears relatively comfortable, skinny appearance
HEENT: NormoCephalic, Anicteric, Atraumatic and PERRLA
Respiratory: Clear to auscultation b/l
Cardiac: S1/S2 and Regular Rhythm; No Murmur or Rub
GI: Soft, Non Tender, Non Distended and Normal Bowel Sounds
Musculoskeletal: No Clubbing, No Cyanosis and No Edema
Skin: No Rash
Neuro: Alert oriented only to self, confused
Psych: Relatively calm but sundowning as day progresses, refusing meds/care
IMPRESSION:
84F HTN, HLD, afib Eliquis, Dementia (not formally diagnosed per family but evidence cognitive decline past few months), p/w intractable nausea and refusing to eat at home. Found to have BERLIN as well as some elevation in lipase with mild total
bilirubin elevation to 1.7. CBC unremarkable. UA noted possible UTI. CT of the head showed no acute cranial process. CT of the abdomen and pelvis showed no acute intra-abdominal process.
PLAN:
#BERLIN
- Cr high 1.8 trending down/resolving
- Most likely prerenal azotemia stemming from dehydration in the setting of decreased p.o. intake.
- IVF D5NS completed
- hold home triamterene-hctz, would dc on discharge, bp well controlled without
- avoid nephrotoxins
- Monitor
#Possible UTI less likely/ruled out
-started on Ceftriaxone 03/18, transitioned to Augmentin
-urine culture noted no significant growth
-abx since discontinued, monitor off
#Acute v Acute on Chronic Metabolic Encephalopathy
- possible Worsening dementia +/- Infectious etiology (UTI), likely compounded with hospital associated delirium
- TSH low but T4 wnl
- had chronic deterioration of memory over the last few months as per family
- 1:1 prn agitation/confusion, risperdal prn and scheduled 0.25 qpm increased to 0.5 qpm, avoid restraints if possible (likely to exacerbate confusion/agitation)
- Psych eval appreciated
#Hypokalemia
- Monitor and replete
#Troponin elevation
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
� Troponin peak 0.063 since trended down
� Denies chest pain
- ECHO appreciated EF 50% severe tricuspid regurgitation
#Nausea - Intractable nasuea versus loss of appetite
- Nausea appears resolved at this time, oral intake improving
- trial of famotidine and ppi completed
- antiemetics
- IVF completed
- Lipase mildly elevated but not sig - CT imaging and Abd US unremarkable
#Low appetite - suspect element of depression
- nutritional supplements
- thiamine/folate as above
- trial of mirtazapine
- social worker eval appreciated moderate protein calorie Malnutrition
- oral intake improving
#Hypokalemia
#Hypophosphatemia
#Hypomagnesemia
Possible Refeeding syndrome
Electrolytes repleted
#QT Prolongation
since significantly improved/resolved following repletion electrolytes
#paroxysmal Afib
- continue metoprolol
- Eliquis to 2.5 bid
DVT PPX - on eliquis
Code status - Full Code
Discussed with patient's son Rk
I spent a total of 40 minutes with the patient or on the floor. More than 50% of this time involved counseling and coordination of care.
Anticipated Discharge: Within 24 hours
Subjective/Interval History
-
Date of Service: March 22, 2025
confused. refusing meds.
Objective Data
-
Vital Signs:
Vital Signs
Temp Pulse Resp BP Pulse Ox
99.0 F 100 20 118/68 99
03/21/25 16:03 03/21/25 16:03 03/21/25 16:03 03/21/25 16:03 03/21/25 16:03
I&O
03/21/25 03/22/25 03/23/25
06:59 06:59 06:59
Intake Total 1200 / 1200 480 / 480
Balance 1200 / 1200 480 / 480
[2025-03-22] MEDS: RISPERDAL PO ×3 (08:18→18:24)
[2025-03-22] MEDS: ELIQUIS PO ×3 (08:52→21:47)
[2025-03-22] MEDS: FOLVITE PO ×2 (08:52→10:27)
[2025-03-22] MEDS: PROTONIX PO ×2 (08:52→10:27)
[2025-03-22] MEDS: PLENDIL EXTENDED RELEASE PO ×2 (08:52→10:27)
[2025-03-22] MEDS: VITAMIN B1 PO ×2 (08:52→10:28)
[2025-03-22] MEDS: LOPRESSOR PO ×3 (08:53→21:47)
[2025-03-22 10:15] VITALS: BP 138/84
--- NOTE | 2025-03-22 11:00 | PTCARENOTE ---
Pt refusing all morning meds and care. Pt hits hand away when anyone comes near. Son @bedside trying to help and grandaughter called via Face Time. Pt allowed vital signs but still refusing medications. MD made aware. Bed alarm in place and son
@bedside to assist with needs. POC ongoing.
[2025-03-22 15:00] VITALS: BP 122/79
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
[2025-03-22] MEDS: REMERON PO (21:47)
[2025-03-23 05:43] VITALS: BMI 20.3
--- NOTE | 2025-03-23 05:59 | PTCARENOTE ---
Addendum entered by Farida Hunt RN 03/23/25 06:59:
*Vitals unable to obtain during this shift*
Original Note:
Pt continues to refuse all meds and care. Vital signs obtained. Pt in tears and screams when staff approach. Able to communicate with translation device. Pt stated 'I am scared and would like to go home. I need to take the metro back to my family.'
Pt unable to be reoriented. Bed alarm in place. Plan of care ongoing.
--- NOTE | 2025-03-23 07:14 | W.PN.HOSP.TC ---
Today's Communication/Plan
-
discharge
Assessment / Plan
Assessment / Plan
Physical Exam
General: No Apparent Distress; Appears comfortable, skinny appearance
HEENT: NormoCephalic, Anicteric, Atraumatic and PERRLA
Respiratory: Clear to auscultation b/l
Cardiac: S1/S2 and Regular Rhythm; No Murmur or Rub
GI: Soft, Non Tender, Non Distended and Normal Bowel Sounds
Musculoskeletal: No Clubbing, No Cyanosis and No Edema
Skin: No Rash
Neuro: Alert oriented only to self, confused but conversant
Psych: Appears cheerful, patient happy that she's going home
IMPRESSION:
84F HTN, HLD, afib Eliquis, Dementia (not formally diagnosed per family but evidence cognitive decline past few months), p/w intractable nausea and refusing to eat at home. Found to have BERLIN as well as some elevation in lipase with mild total
bilirubin elevation to 1.7. CBC unremarkable. UA noted possible UTI. CT of the head showed no acute cranial process. CT of the abdomen and pelvis showed no acute intra-abdominal process.
PLAN:
#BERLIN
- Cr high 1.8 trending down/resolving
- Most likely prerenal azotemia stemming from dehydration in the setting of decreased p.o. intake.
- IVF D5NS completed
- hold home triamterene-hctz, would dc on discharge, bp well controlled without
- avoid nephrotoxins
- Resolved
#Possible UTI less likely/ruled out
-started on Ceftriaxone 03/18, transitioned to Augmentin
-urine culture noted no significant growth
-abx since discontinued, monitor off
#Acute v Acute on Chronic Metabolic Encephalopathy
- possible Worsening dementia +/- Infectious etiology (UTI), likely compounded with hospital associated delirium
- TSH low but T4 wnl
- had chronic deterioration of memory over the last few months as per family
- 1:1 prn agitation/confusion, risperdal prn and scheduled 0.25 qpm increased to 0.5 qpm, avoid restraints if possible (likely to exacerbate confusion/agitation)
- Psych eval appreciated
#Hypokalemia
- Monitor and replete
#Troponin elevation
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
� Troponin peak 0.063 since trended down
� Denies chest pain
- ECHO appreciated EF 50% severe tricuspid regurgitation
#Nausea - Intractable nasuea versus loss of appetite
- Nausea appears resolved at this time, oral intake improving
- trial of famotidine and ppi completed
- antiemetics
- IVF completed
- Lipase mildly elevated but not sig - CT imaging and Abd US unremarkable
#Low appetite - suspect element of depression
- nutritional supplements
- thiamine/folate as above
- trial of mirtazapine
- intermodal truck driver eval appreciated moderate protein calorie Malnutrition
- oral intake improving
#Hypokalemia
#Hypophosphatemia
#Hypomagnesemia
Possible Refeeding syndrome
Electrolytes repleted
#QT Prolongation
since significantly improved/resolved following repletion electrolytes
#paroxysmal Afib
- continue metoprolol
- Eliquis to 2.5 bid
DVT PPX - on eliquis
Code status - Full Code
Medically stable for discharge home with home services and outpt follow up recommendations.
Discussed with patient and patient's son Rk
Total Time Preparing Discharge _40 minutes including examination of the patient, summary of the hospital stay, instructions for continuing care to all relevant caregivers; and preparation of discharge records, prescriptions, and referral
forms if necessary.
Anticipated Discharge: Today
Subjective/Interval History
-
Date of Service: March 23, 2025
no acute distress resting comfortably in bed. Overall appears well comfortable pleasant cheerful with family at bedside. Patient aware she is going home and looking forward. Family at bedside providing Cantonese translation
Objective Data
-
Vital Signs:
Vital Signs
Temp Pulse Resp BP Pulse Ox
98.9 F 112 17 122/79 97
03/22/25 15:00 03/22/25 15:00 03/22/25 15:00 03/22/25 15:00 03/22/25 15:00
I&O
03/22/25 03/23/25 03/24/25
06:59 06:59 06:59
Intake Total 480 / 480 480 / 480
Balance 480 / 480 480 / 480
[2025-03-23] MEDS: ELIQUIS PO (10:31)
[2025-03-23] MEDS: FOLVITE PO (10:31)
[2025-03-23] MEDS: LOPRESSOR PO (10:31)
[2025-03-23] MEDS: PLENDIL EXTENDED RELEASE PO (10:31)
[2025-03-23] MEDS: PROTONIX PO (10:32)
[2025-03-23] MEDS: VITAMIN B1 PO (10:32)
--- NOTE | 2025-03-23 10:32 | PTCARENOTE ---
Pt refusing all vital signs, hygiene, and medication. MD made aware. Pt appears tearfully happy when family members arrived at bedside. Family requesting discharge instructions to take pt home. MD made aware and seeing pt @bedside at this time. Will
await further instruction.
--- NOTE | 2025-03-23 11:04 | W.DCSUMMARY ---
Discharge Summary
Discharge Data
Date of Admission: 03/18/25
Date of Discharge: 03/23/25
-
Pending Results: No
Discharge Plan
-
Patient Disposition: Home with Home Care
Discharge Diagnosis/Procedures: Acute Kidney Injury Resolved
Possible Urinary Tract Infection Ruled out
Dementia Delirium
Possible Underlying Depression
History paroxysmal atrial fibrillation
Condition: Fair
Diet: Regular and Supplements
Additional Diets: Ensure supplements available over the counter
Activity: As tolerated
Driving Restrictions: No driving
Bathing Restrictions: None
Blood Work: Repeat CBC and BMP with primary care provider in 1 week of discharge.
Other Services: PT and OT
Activity Restrictions/Additional Instructions:
Follow up with primary care provider in 1 week of discharge.
Follow up with neuropsychiatry and neurology in 2-4 weeks of discharge.
Eliquis, for stroke risk reduction atrial fibrillation, dose has been reduced to 2.5 mg twice a day due to Age>80 and wt<60 kg.
Remeron (mirtazapine) has been started for possible depression and appetite loss.
Risperidone 0.5 mg (2 tabs) evening prescribed for agitation/psychosis/confusion/sundowning related to Dementia. If improvement at home is noted, ok to reduce dose to 0.25 mg (1 tab) evening. If continues to improve/remains improved on reduced
dose, can consider stopping.
Multivitamin prescribed for nutrition. This is available over the counter.
Home Medications Triameterene-hydrochlorothiazide discontinued due to acute kidney injury, increased risk dehydration with poor oral intake. Also blood pressure has been well controlled without, medication not necessary at this time.
Please take medications as prescribed/recommended and follow up with primary care provider and/or other healthcare provider involved in your care for refills and/or further adjustment to your medication regimen as necessary.
Referrals:
Parker Nieto PSY [Specified Professional Personl, Psychiatry] - in two to four weeks
Augie Bryson MD [Active, Neurology] - in two to four weeks
Preethi Gallardo MD [Family Provider, Internal Medicine] - in one week
Prescriptions:
New
risperidone 0.25 mg Tablet
0.5 mg PO QPM Qty: 60 0RF
Rx Instructions:
ok to reduce to 0.25 QPM if improvement is noted.
mirtazapine 7.5 mg Tablet
7.5 mg PO HS Qty: 30 0RF
Eliquis 2.5 mg Tablet
2.5 mg PO BID Qty: 60 0RF
multivitamin with folic acid [Tab-A-Eneida] 400 mcg Tablet
1 tab PO DAILY Qty: 30 0RF
Continued
felodipine 5 mg Tablet Extended Release 24 Hr
5 mg PO DAILY
omeprazole 20 mg Capsule,Delayed Release(Dr/Ec)
20 mg PO DAILY
metoprolol tartrate 25 mg Tablet
12.5 mg PO BID
lovastatin 20 mg tablet
20 mg PO HS
fluticasone propionate 50 mcg/actuation spray,suspension
2 spray intranasal DAILYPRN PRN (Reason: allergy symptoms)
Discontinued
Eliquis 5 mg Tablet
5 mg PO BID
triamterene-hydrochlorothiazid 37.5-25 mg Tablet
1 tab PO DAILY
Discharge Orders:
Discharge Patient (As Directed); Ordered 03/23/25
Ordered By: Jack Gardiner
Discharge Date and Time
Print Language: THAI
[2025-03-23 11:10] VITALS: BP 122/75
--- NOTE | 2025-03-27 09:19 | CM ---
TC from daughter requesting [employer] skilled rehab authorization for admission to skilled rehab today. Patient was d/c 03/23/25 to home with provate caregivers. CM explained it would not be possible for me to request an insurance auth at this time.
Patient was last seen by PT on 03/20/25 with recommendation for home with HC. Patient did not receive VN on d/c. CM recommended calling PCP to see if VN could be ordered and possibly assess the patient and assist with insurance authorization.
== END 2025-03-23 12:19 | disposition home or self-care (01) | DRG 682 ==
LOC: 3 WEST ACU 00:39
PROVIDERS: Internal Medicine; ADMITTING PHYSICIAN Internal Medicine; ATTENDING PHYSICIAN Internal Medicine; CONSULT PHYSICIAN Psychiatry & Neurology Psychiatry; EMERGENCY PHYSICIAN Emergency Medicine; FAMILY PHYSICIAN Internal Medicine
DX: N17.9 Acute kidney failure, unspecified (principal); G93.41 Metabolic encephalopathy; F05 Delirium due to known physiological condition; I5A Non-ischemic myocardial injury (non-traumatic); E44.0 Moderate protein-calorie malnutrition; E86.0 Dehydration; R11.2 Nausea with vomiting, unspecified; I48.0 Paroxysmal atrial fibrillation; F03.90 Unspecified dementia, unspecified severity, without behavioral disturbance, psychotic disturbance, mood disturbance, and anxiety; Z68.20 Body mass index [BMI] 20.0-20.9, adult; E87.6 Hypokalemia; E83.39 Other disorders of phosphorus metabolism; E83.42 Hypomagnesemia; I10 Essential (primary) hypertension; Z79.899 Other long term (current) drug therapy; Z79.01 Long term (current) use of anticoagulants
CPT/HCPCS: 70450; 74176; 76700; 80048; 80053; 80061; 81003; 81015; 82248; 82550; 82607; 82746; 83690; 83735; 84100; 84134; 84439; 84443; 84484; 85025; 85027; 87086; 93005; 93306; 96360; 96361; 97163; 97167; 99285

== ENCOUNTER 2025-03-27 17:54 | Inpatient (IN) | payer OTHER, SELFPAY ==
[2025-03-27] VITALS (12 sets, daily range): BP systolic 94–128; BP diastolic 47–72; BMI 19.4
[2025-03-27 13:24] LABS: Hematocrit 32.6 % (37.0-47.0); Hemoglobin 10.8 g/dL (12.0-16.0); Mean Corp Hgb Conc. 33.1 g/dL (33.0-37.0); Mean Corpuscular Volume 88.3 fL (81.0-99.0); Nucleated Red Blood Cells % 0 %; Platelet Count 211 10^3/uL (130-400); Red Cell Dist. Width 14.6 % (11.5-14.5)
[2025-03-27 13:50] LABS: ALT (SGPT) 11 U/L (0-35); AST (SGOT) 19 U/L (14-36); Albumin 3.6 g/dl (3.5-5.0); Alkaline Phosphatase 44 U/L (38-126); Blood Urea Nitrogen 35 mg/dl (7-17); Calcium 7.9 mg/dl (8.4-10.2); Carbon Dioxide 24 mmol/L (22-30); Chloride 101 mmol/L (98-107); Glucose 103 mg/dl (70-99); Potassium 3.1 mmol/L (3.5-5.1); Sodium 133 mmol/L (135-145); Total Protein 6.6 g/dl (6.3-8.2); eGFR 25.40
--- NOTE | 2025-03-27 16:22 | ED.GENMED ---
History of Present Illness
General
Chief Complaint: Weakness
Source: family (daughter)
Exam Limitations: none
Time Seen by Provider: 03/27/25 16:05
Nursing documentation reviewed up to this point in time: agreed with
History of Present Illness
History of Present Illness:
Patient returns to ED for increasing weakness, 2 falls, poor appetite. She was admitted here 03/17-03/23 for anorexia, weakness. She is currently staying with daughter as she has been too weak, confused to return home. Daughter states patient is
eating/drinking very little. Fell trying to get OOB, daughter concerned because she cant be with her 08/03. Daughter would like to see her eventually transferred to rehab in [place] but feels at this time patient is too weak and needs to return to ED.
No fever/chillls, n/v/d. No BM since discharged. No SOB, cough, cp/pressure.
Past History
Past History
ED Past Medical History: GERD and HTN
ED Past Surgical History: Gynecological and Other (Cataracts)
Review of Systems
Review of Systems
Allergies reviewed?: Yes
All Other Systems: ROS reviewed and negative except as documented in HPI and ROS
Constitutional: Reports weight loss and fatigue
Respiratory: Reports no symptoms
Cardiac: Reports no symptoms
ABD/GI: Reports constipated and anorexia
: Reports no symptoms
Musculoskeletal: Reports no symptoms
Skin: Reports no symptoms
Neurological: Reports weakness
Psychiatric: Reports no symptoms
Phy Exam
General Physical Exam
General Presentation: no apparent distress
General age: appears stated age
General Skin: warm and dry
General Habitus: cachetic, elderly and frail
General Mental: confused (baseline)
General Hydration: appears well hydrated
Cardiovascular Exam
Cardiovascular Exam: regular rate/rhythm and no edema
Pulmonary Exam
Pulmonary Exam: lungs clear and no respiratory distress
Gastrointestinal Exam
Gastrointestinal Exam: normal bowel sounds, non tender, no organomegaly, no pulsatile mass, non distended and no cva tenderness
Rectal Exam: normal external exam, normal sphincter tone and soft stool
Stool: brown
Guaiac Status: negative
Musculoskeletal Exam
Musculoskeletal Exam: full ROM and neuro vasc intact
Skin Exam
Skin Exam: normal color, warm/dry and no rash
Psychiatric Exam
Psychiatric Exam: normal mood/affect
Course
Orders/Labs/Results
Orders:
Orders
03/27/25 13:12
Complete Blood Count/With Diff Urgent
Comprehensive Metabolic Panel Urgent
Ferritin Urgent
Comment: ADD ON
Iron Urgent
Comment: ADD ON
Total Iron Binding Urgent
Comment: ADD ON
Vitamin B12 Urgent
Comment: ADD ON
03/27/25 Dinner
Regular
At Your Request: Full Participation
03/27/25 16:20
Abdomen Xray - 1 View [CR Abdomen - 1 View] Urgent
Comment:
Reason For Exam: constipation
03/27/25 16:21
0.9% Sodium Chloride 1000 ml [Nss] 1,000 ml IV BOLUS
03/27/25 16:34
POTASSIUM PHOSPHATE 1mEq=0.7mM [Potassium Phosphate] 40 meq 0.9% Sodium Chloride 250 ml [Nss] 250 ml IV NOW
03/27/25 16:45
Urinalysis Reflex To Culture Urgent
Date Specimen was Collected: 03/27/25
Time Specimen was Collected: 16:27
Urine Microscopic Reflex Cult Urgent
Urine Culture Urgent
WEST Source: U
Specimen Description:
Date Specimen was Collected: 03/27/25
Time Specimen was Collected: 16:27
03/27/25 17:41
Admit/Transfer Patient As Directed
Co-Sign Provider:
Level of Care: Inpatient admission
Assign to:: Telemetry
Physician / Group: matt
Diagnosis: BERLIN
Reason for Telemetry: Arrhythmia
Date to Stop Telemetry: 03/30/25
Time to Stop Telemetry: 11:00
Reason for Hospitalization: BERLIN
Expected length of stay greater than two midnights?: Yes
ELOS- Estimated Length of Stay in days: 2
I certify the patient meets the requirements for IP care: Yes
03/27/25 17:42
Code Status As Directed
Resuscitation Status: Do not resuscitate
Reached after discussion with pt or family/Healthcare POA: Yes
DNR Bracelet Application ONCE
PRN Pain Medication Management As Directed
May give lesser potent ordered pain med per pt: Yes
preference::
Protocol:: Medication orders for pain may be administered in a
manner that supports deferring to patient preference
when the pt is:
- Requesting an ordered lesser potent pain medication.
Least to most potent pain medications are defined
as: acetaminophen < NSAID < tramadol < opioids
(morphine, oxycodone, hydromorphone).
- Requesting a lesser dose of the same medication IF
ORDERED.
- Requesting a less intrusive route of administration
if both routes are prescribed by the provider (PO <
IV).
03/27/25 19:45
0.9% Sodium Chloride 1000 ml [Nss] 1,000 ml IV 100 mls/hr
03/27/25 19:45
VTE Contraindication Routine
VTE Mechanical Device Contraindication: Medical Contraindication
Pharmocologic Contraindication: Medical Contraindication
Activity As Directed
Activity Level: As Tolerated
Jean- Fecal Occult Blood [Jean- Hemetest] As Directed
Vital Signs As Directed
Frequency: Per unit guidelines
03/28/25 06:00
Complete Blood Count/With Diff IN AM
Comprehensive Metabolic Panel IN AM
03/30/25 11:00
DC Protocol for Telemetry ONCE
Abnormal Lab Results
03/27/25 03/27/25
13:12 16:45
RBC 3.69 L 10^6/uL
(4.20-5.40)
Hgb 10.8 L g/dL
(12.0-16.0)
Hct 32.6 L %
(37.0-47.0)
RDW 14.6 H %
(11.5-14.5)
Absolute Monos (auto) 0.7 H 10^3/uL
(0.1-0.6)
Sodium 133 L mmol/L
(135-145)
Potassium 3.1 L mmol/L
(3.5-5.1)
BUN 35 H mg/dl
(7-17)
Creatinine 1.9 H mg/dL
(0.6-1.0)
Glucose 103 H mg/dl
(70-99)
Calcium 7.9 L mg/dl
(8.4-10.2)
Iron 33 L ug/dl
(37-170)
TIBC 193 L ug/dl
(265-497)
% Saturation 17 L %
(20-50)
Ferritin 512.0 H ng/ml
(11.1-264.0)
Ur Occult Blood Reflex 2+ A
(Negative)
Leukocyte Esterase Rfl 3+ A
(Negative)
Urine RBC 3-6 A /HPF
(0-2)
Urine WBC (Reflex) 11-15 A /HPF
(0-5)
Urine Bacteria (Reflex) Few A
(Negative)
Urine Albumin (Reflex) 2+ A
(Neg - Trace)
03/27/25 13:12
03/27/25 13:12
Vital Signs
Initial and Last Documented VS:
Initial Vital Signs
Temp Pulse Resp BP Pulse Ox
99.2 F 72 16 97/58 97
03/27/25 13:06 03/27/25 13:06 03/27/25 13:06 03/27/25 13:06 03/27/25 13:06
Last Documented Vital Signs
Temp Pulse Resp BP Pulse Ox
97.8 F 75 18 128/72 95
03/27/25 23:38 03/27/25 23:38 03/27/25 23:38 03/27/25 23:38 03/27/25 23:38
*Pulse Oximetry
SaO2: 97
Oxygen Mode of Delivery: Room air
Patient hypoxic: no
*Critical Care Note
Total Time (30-74mins, 75-104mins- exclusive of procedures): Not Applicable
Update Note
Update Note:
Patient returns to ED for worsening weakness, 2 falls at home ( no head injury), poor appetite. VSS, afebrile. Labs reviewed. Na 133, K 3.1 (3.6 on discharge 03/23) Bun 35, creat 1.9. (creat 1.0 on discharge) - probable dehydration due to report
of poor intake at home. IVF, Krider initiated in ED. Hgb 10.8 (13.3 on discharge 03/23) Stool heme neg. Will admit to hospitalist for weakness, failure to thrive, dehydration BERLIN. Discussed iwth daughter who is agreeable to plan
ED Attending Note
-
Portions of this chart may have been created with voice recognition software.� Occasional wrong word or��sound alike� substitutions may have occurred due to the inherent limitations of voice recognition software.
Discharge Plan
Departure
Patient Disposition: Admit
Date of Disposition: 03/27/25
Time of Disposition: 16:46
Presentation/result/management discussed w/ accepting MD/DO: Hospitalist
Condition: Fair
Covid-19: Not Applicable
Discharge Problem:
BERLIN (acute kidney injury), Hypokalemia, Weakness, Acute dehydration
Interventions
Interventions:
*Risk Screen - Suicide Last Done: 03/27/25 13:08
*General Assessment Last Done: 03/27/25 17:28
*Neglect/Abuse Screening Last Done: 03/27/25 13:08
*ED- Fall Risk Assessment Last Done: 03/27/25 17:28
*ED COVID-19 Vaccine History Last Done: 03/27/25 17:28
*Nursing Disposition Last Done: 03/27/25 19:48
ED- Cardiac Assessment Last Done: 03/27/25 17:28
ED- Neurological Assessment Last Done: 03/27/25 17:28
ED- Pulmonary Assessment Last Done: 03/27/25 17:28
Discharge Date and Time
Discharge Date/Time: 03/27/25 19:48
[2025-03-27 16:55] LABS: Urine Character Clear (Clear)
[2025-03-27] MEDS: NSS 1000 IV (17:06)
[2025-03-27] MEDS: POTASSIUM PHOSPHATE 259.0909 MEQ IV (17:24)
--- NOTE | 2025-03-27 17:49 | HPS.HSE ---
Family Physician
-
Family Physician: Preethi Gallardo MD
Chief Complaint
-
weakness
History of Present Illness
84-year-old Cantonese speaking female past medical history of paroxysmal atrial fibrillation on Eliquis, hypertension, hyperlipidemia depression, dementia, presenting with increasing weakness, 2 falls and poor appetite. �She is currently staying
with daughter as she has been too weak and confused to return home alone. �Daughter states she has been eating very little. �She fell trying to get out of bed. �Daughter wants her to go to rehab [place] but feels she is too weak so she came back
to ER. �No fevers or chills, nausea vomiting or diarrhea. �No bowel movement for 4 days�no shortness of breath or cough.
She was admitted here on 03/17 to 03/23 for anorexia and weakness. �She had BERLIN at that time with IV fluids. �She was thought to have UTI which was ruled out and eventually thought to be hospital-associated delirium. �She had intractable nausea and
vomiting which eventually resolved. �She had electrolyte abnormality due to refeeding which resolved.
Medical History
Past Medical History
Past Medical History: Reports Other (paroxysmal atrial fibrillation on Eliquis, hypertension, hyperlipidemia depression, dementia)
Past Surgical History: Reports None
Social History
Tobacco: Non-smoker
Alcohol: None
Drug: None
Family History
Family History: Not pertinent
Allergies / Home Medications
Allergies reflects when Allergies were last updated in [employer]
Home Medications with original date entered in [employer]
Allergy/Medication List:
Allergies
Allergy/AdvReac Type Severity Reaction Status Date / Time
NKA - No Known Allergies Allergy Unknown Uncoded 03/18/25 02:07
Home Medications
felodipine 5 mg tablet,extended release 24 hr 5 mg PO DAILY Blood Pressure 03/18/25
metoprolol tartrate 25 mg tablet 12.5 mg PO BID Blood Pressure 03/18/25
omeprazole 20 mg capsule,delayed release 20 mg PO DAILY Gastrointestinal Issue 03/18/25
fluticasone propionate 50 mcg/actuation nasal spray,suspension 2 spray intranasal DAILYPRN PRN allergy symptoms 03/19/25
lovastatin 20 mg tablet 20 mg PO HS cholesterol 03/19/25
apixaban 2.5 mg tablet (Eliquis) 2.5 mg PO BID #60 tabs 03/23/25
mirtazapine 7.5 mg tablet 7.5 mg PO HS #30 tabs 03/23/25
multivitamin with folic acid 400 mcg tablet (Tab-A-Eneida) 1 tab PO DAILY #30 tabs 03/23/25
risperidone 0.25 mg tablet 0.5 mg (2 x 0.25 mg) PO QPM #60 tabs 03/23/25
Review of Systems
-
History Source: Patient
A 12 point ROS was completed and negative except as noted: Yes
Constitutional: Reports No Symptoms
EENT: Reports No Symptoms
Respiratory: Reports No Symptoms
Cardiac: Reports No Symptoms
Abdomen/GI: Reports No Symptoms
: Reports No Symptoms
Musculoskeletal: Reports No Symptoms
Skin: Reports No Symptoms
Neurological: Reports No Symptoms
Endocrine: Reports No Symptoms
Hematologic/Lymphatic: Reports No Symptoms
Psych: Reports No Symptoms
Physical Exam
Vital Signs
Vital Signs
Temp Pulse Resp BP Pulse Ox
99.2 F 72 22 102/54 98
03/27/25 13:06 03/27/25 17:29 03/27/25 17:21 03/27/25 17:21 03/27/25 17:28
Physical Exam
General: Well Developed, Well Nourished and No Apparent Distress
HEENT: NormoCephalic, Moist mucous membranes and Atraumatic
Respiratory: Clear
Cardiac: S1/S2 and Regular Rhythm; No Murmur or Rub
GI: Soft, Non Tender, Non Distended and Normal Bowel Sounds; No Organomegaly
Rectal: Deferred by Provider
Musculoskeletal: No Clubbing, No Cyanosis and No Edema
Skin: No Rash
Neuro: Nonfocal/grossly intact
Laboratory Results
-
03/27/25 13:12
03/27/25 13:12
Laboratory Results
Total Bilirubin 1.0 mg/dl (0.2-1.3) 03/27/25 13:12
AST 19 U/L (14-36) 03/27/25 13:12
ALT 11 U/L (0-35) 03/27/25 13:12
Alkaline Phosphatase 44 U/L (38-126) 03/27/25 13:12
Data Reviewed
-
Lab Data: Labs Reviewed by me
Old Records: Reviewed
Impression/Plan
-
IMPRESSION:
PLAN:
# Acute kidney injury likely prerenal secondary to poor p.o. intake due to underlying dementia/ongoing delirium
# Hypotension secondary to hypovolemia
# Ambulatory dysfunction/falls
- IV fluids
- Hold felodipine
- Continue Remeron for appetite stimulation
# Constipation likely secondary to poor p.o. intake
-Abdomen appears benign without tenderness
- Abdominal x-ray pending to evaluate stool
# Hypokalemia secondary to poor p.o. intake
- Replete potassium
- Check magnesium, phosphorus
# New onset anemia
- Hemoglobin 10.8 from 13 previous
- Check iron studies, B12 and folate, fecal occult
Chronic metabolic encephalopathy likely from poor p.o. intake/dementia
Paroxysmal atrial fibrillation
- Continue Eliquis
- Continue metoprolol
Essential hypertension
- Hold felodipine
Depression
- continue mirtazapine
Dementia with agitation
- Continue Risperdal
Hyperlipidemia
- Continue statin
DNR/DNI
DVT prophylaxis�Eliquis
Regular diet
[2025-03-27 21:31] LABS: Iron 33 ug/dl (37-170)
[2025-03-27] MEDS: ELIQUIS 2.5 MG PO (21:40)
[2025-03-27] MEDS: REMERON 7.5 MG PO (21:40)
[2025-03-27] MEDS: RISPERDAL 0.25 MG PO (21:40)
[2025-03-27] MEDS: SENOKOT-S 1 TABLET PO (21:40)
[2025-03-27 21:41] LABS: Total Iron Binding Capacity 193 ug/dl (265-497)
[2025-03-27] MEDS: LIPITOR 10 MG PO (21:41)
[2025-03-27] MEDS: LOPRESSOR 12.5 MG PO (21:41)
[2025-03-27 23:39] LABS: Ferritin 512.0 ng/ml (11.1-264.0)
[2025-03-27 23:53] LABS: Vitamin B12 518 pg/ml (239-931)
[2025-03-28] VITALS (7 sets, daily range): BP systolic 104–130; BP diastolic 54–68; PULSE 82; O2SAT 99
[2025-03-28] MEDS: NSS 1000 IV ×2 (00:25→07:57)
--- NOTE | 2025-03-28 07:14 | W.PN.HOSP.TC ---
Today's Communication/Plan
-
Replete Electrolytes
IVF support
High dose Vit D supplementation
PT/OT
pain control
CT head/neck
discharge planning SNF rehab
Assessment / Plan
Assessment / Plan
Physical Exam
General: No acute distress, appears comfortable at this time
HEENT: NormoCephalic, Moist mucous membranes and Atraumatic
Respiratory: Clear
Cardiac: S1/S2 and Regular Rhythm; No Murmur or Rub
GI: Soft, Non Tender, Non Distended and Normal Bowel Sounds; No Organomegaly
Musculoskeletal: No Clubbing, No Cyanosis and No Edema. Neck tenderness noted
Skin: No Rash
Neuro: AOx1 oriented to self only
Psych: Calm
84F Cantonese speaking pAfib Eliquis HTN HLD Depression Dementia presenting with progressive persistent weakness falls poor oral intake BERLIN w/ associate electrolyte abn's.
#Chronic metabolic encephalopathy likely from poor p.o. intake/dementia
# BERLIN likely prerenal secondary to poor p.o. intake due to underlying dementia/ongoing delirium
# Hypotension secondary to hypovolemia
# Ambulatory dysfunction/falls
# Dementia with behavioral disturbances
# Depression
- IV fluids
- Hold felodipine
- Continue Remeron for appetite stimulation
-Risperidone 0.25 mg QPM, Q6HPRN agitation
-prn 1:1, avoid restraints as possible
#Neck pain/tenderness
Daughter reports patient typically uses patches at home (salonpas)
Lidocaine patch
prn Tylenol, moderate pain Tramadol, severe pain low dose IV dilaudid
check CT head/neck given hx falls prior to admission.
# Constipation likely contributing to poor oral intake
-Abdomen appears benign without tenderness
- Abdominal x-ray noted mild moderate stool right hemicolon, no obstruction noted
-bowel regimen Senokot-S Miralax
# Hypokalemia
#Hypomagnesemia
monitor and replete as necessary
#Severe Vit D deficiency
High dose weekly Vit D supplementation started
#Anemia of Chronic Disease
Iron studies appreciated anemia of chronic disease
monitor H&H
B12 non-deficient
Paroxysmal atrial fibrillation
- Continue Eliquis
- Continue metoprolol
Essential hypertension
- Hold felodipine
- monitor BP, no need for antihypertensives at this time.
Hyperlipidemia
- Continue statin
PT/OT appreciated SNF rehab
DNR/DNI
DVT prophylaxis�Eliquis
Regular diet
Discussed with patient, patient's daughter Rosibel, and patient's son Rk
I spent a total of 50 minutes with the patient or on the floor. More than 50% of this time involved counseling and coordination of care.
Anticipated Discharge: 24 - 48 hours
Subjective/Interval History
-
Date of Service: March 28, 2025
No acute distress, sitting up comfortably in chair. Daughter May present and providing Cantonese translation for patient. Patient AOx1 oriented only to self. Reports neck pain/tenderness. Daughter reports patient typically applies salonpas
patches at home to her neck. appetite remains poor. Denies nausea.
Objective Data
-
Labs:
Laboratory Results
03/28/25
06:00
WBC Pending
Hgb Pending
Hct Pending
Plt Count Pending
Sodium Pending
Potassium Pending
Chloride Pending
Carbon Dioxide Pending
BUN Pending
Creatinine Pending
Glucose Pending
Calcium Pending
Total Bilirubin Pending
AST Pending
ALT Pending
Alkaline Phosphatase Pending
Vital Signs:
Vital Signs
Temp Pulse Resp BP Pulse Ox
97.4 F 66 18 104/63 96
03/28/25 03:49 03/28/25 03:49 03/28/25 03:49 03/28/25 03:49 03/28/25 03:49
[2025-03-28] MEDS: SENOKOT-S 1 TABLET PO ×2 (07:53→20:58)
[2025-03-28] MEDS: PROTONIX 40 MG PO (07:53)
[2025-03-28] MEDS: ELIQUIS 2.5 MG PO ×2 (07:53→20:57)
[2025-03-28] MEDS: LOPRESSOR 12.5 MG PO ×2 (07:54→21:00)
[2025-03-28 08:14] LABS: Hematocrit 29.3 % (37.0-47.0); Hemoglobin 10.0 g/dL (12.0-16.0); Mean Corp Hgb Conc. 34.1 g/dL (33.0-37.0); Mean Corpuscular Volume 86.4 fL (81.0-99.0); Nucleated Red Blood Cells % 0 %; Platelet Count 192 10^3/uL (130-400); Red Cell Dist. Width 14.5 % (11.5-14.5)
[2025-03-28 09:03] LABS: ALT (SGPT) < 10 U/L (0-35); AST (SGOT) 18 U/L (14-36); Albumin 3.1 g/dl (3.5-5.0); Alkaline Phosphatase 35 U/L (38-126); Blood Urea Nitrogen 23 mg/dl (7-17); Calcium 6.9 mg/dl (8.4-10.2); Carbon Dioxide 23 mmol/L (22-30); Chloride 108 mmol/L (98-107); Estimated Creatinine Clearance 27 ml/min; Glucose 66 mg/dl (70-99); Potassium 3.0 mmol/L (3.5-5.1); Sodium 141 mmol/L (135-145); Total Protein 5.8 g/dl (6.3-8.2); eGFR 48.94
[2025-03-28] MEDS: MIRALAX 17 GRAMS PO (11:56)
[2025-03-28] MEDS: KCL 270 MEQ IV (11:56)
[2025-03-28] MEDS: CALCIUM GLUCONATE 100 IV (11:56)
[2025-03-28] MEDS: D5/0.9% SODIUM CHLORIDE 1000 IV (11:56)
[2025-03-28] MEDS: KCL 40 MEQ PO (12:08)
[2025-03-28 12:13] LABS: Magnesium 1.1 mg/dl (1.6-2.3)
[2025-03-28 12:44] LABS: Vitamin D, 25-OH*** < 12.8 ng/mL (30-80)
--- NOTE | 2025-03-28 13:38 | CM ---
ALISSON contacted Karina at [facility] in [place], [place] where they have an speaking community. Pt had been referred there last week, however family decided to take her home with the hopes that she would do better in her home environment. Pt
readmitted to due to family inability to care for Shoot; now seeking admission to [facility]. Per Karina, pt's insurance is not in network with their facility. [facility] will consider a single case agreement if [employer] will agree to same.
Plan: CM will continue to follow for transfer to [facility] pending single case agreement.
Pt's daughter is aware that transport to [facility] will not be covered by insurance due to the distance of the facility from [facility].
[facility] admissions:
[2025-03-28] MEDS: DRISDOL (VITAMIN D2) 50000 UNITS PO (15:40)
--- NOTE | 2025-03-28 15:40 | CM ---
Addendum entered by Sharifa Carrillo 03/28/25 16:10:
Updated PT note from today sent via fax to Karina at [facility] per her request.
Original Note:
CM following for discharge to [facility], however pt's insurance is not in network with [facility], and there is no out of network benefit available in pt's insurance plan. Karina from [facility] is going to speak with family about private pay for SNF
due to insurance coverage restrictions.
Plan: CM to await update from Karina at [facility].
[2025-03-28] MEDS: MAGNESIUM SULFATE 100 IV (15:41)
[2025-03-28] MEDS: LIDOCAINE 4% PATCH 1 PATCH TOPICAL (15:41)
[2025-03-28] MEDS: RISPERDAL 0.25 MG PO (17:17)
[2025-03-28] MEDS: TYLENOL 650 MG PO (17:47)
[2025-03-28] MEDS: REMOVE LIDOCAINE PATCH 1 PATCH REMOVE (20:57)
[2025-03-28] MEDS: KCL 20 MEQ PO (20:57)
[2025-03-28] MEDS: REMERON 7.5 MG PO (21:00)
[2025-03-28] MEDS: LIPITOR 10 MG PO (21:01)
[2025-03-29 03:00] VITALS: BP 105/65
[2025-03-29] MEDS: D5/0.9% SODIUM CHLORIDE 1000 IV (03:20)
[2025-03-29 07:00] VITALS: BP 105/63
--- NOTE | 2025-03-29 07:08 | W.PN.HOSP.TC ---
Addendum entered and electronically signed by Jack Gardiner MD 03/31/25 21:13:
Moderate Protein Calorie Malnutrition
Original Note:
Today's Communication/Plan
-
Planned for Discharge morning 9AM when family can transport patient to accepting facility [facility] rehab [facility]
Assessment / Plan
Assessment / Plan
Physical Exam
General: No acute distress, appears comfortable at this time
HEENT: NormoCephalic, Moist mucous membranes and Atraumatic
Respiratory: Clear
Cardiac: S1/S2 and Regular Rhythm; No Murmur or Rub
GI: Soft, Non Tender, Non Distended and Normal Bowel Sounds; No Organomegaly
Musculoskeletal: No Clubbing, No Cyanosis and No Edema. Neck tenderness noted
Skin: No Rash
Neuro: AOx1 oriented to self only
Psych: Calm
84F Cantonese speaking pAfib Eliquis HTN HLD Depression Dementia presenting with progressive persistent weakness falls poor oral intake BERLIN w/ associate electrolyte abn's.
#Chronic metabolic encephalopathy likely from poor p.o. intake/dementia
# BERLIN likely prerenal secondary to poor p.o. intake due to underlying dementia/ongoing delirium
# Hypotension secondary to hypovolemia
# Ambulatory dysfunction/falls
# Dementia with behavioral disturbances
# Depression
- IV fluids completed, tolerating diet
- discontinue home felodipine, bp well controlled without
- Continue Remeron for appetite stimulation
-Risperidone 0.25 mg QPM, Q6HPRN agitation
-prn 1:1, avoid restraints as possible
#Neck pain/tenderness suspect arthritis vs muscle strain
Daughter reports patient typically uses patches at home (salonpas)
Lidocaine patch
prn Tylenol, moderate pain Tramadol, severe pain low dose IV dilaudid
CT head/neck appreciated no acute abn's
# Constipation likely contributing to poor oral intake
-Abdomen appears benign without tenderness
- Abdominal x-ray noted mild moderate stool right hemicolon, no obstruction noted
-bowel regimen Senokot-S Miralax
-constipation since resolved
# Hypokalemia
#Hypomagnesemia
monitor and replete as necessary
#Severe Vit D deficiency
#Hypocalcemia
High dose weekly Vit D supplementation started
Calcium supplementation
#Anemia of Chronic Disease
Iron studies appreciated anemia of chronic disease
monitor H&H
B12 non-deficient
Paroxysmal atrial fibrillation
- Continue Eliquis
- Continue metoprolol
Essential hypertension
- cont home metoprolol
-discontinued felodipine as above, bp well controlled without
Hyperlipidemia
- Continue statin
PT/OT appreciated SNF rehab
DNR/DNI
DVT prophylaxis�Eliquis
Regular diet
Medically stable for discharge SNF rehab with outpatient follow up recommendations. Discharge planned for morning 03/30 when family can arrange transportation. Patient going to preferred facility in [facility] (per daughter significant
community presence at facility along with some of patient's friends/family)
Discussed with patient, patient's daughter Rosibel, and patient's son Rk
Total Time Preparing Discharge ___40____ minutes including examination of the patient, summary of the hospital stay, instructions for continuing care to all relevant caregivers; and preparation of discharge records, prescriptions, and referral
forms if necessary.
Anticipated Discharge: Within 24 hours
Subjective/Interval History
-
Date of Service: March 29, 2025
No acute distress. Overall reports feeling well. Remains oriented only to self. Family, daughter Rosibel and son Rk, present during evaluation.
Objective Data
-
Labs:
Laboratory Results
03/29/25
06:00
WBC Pending
Hgb Pending
Hct Pending
Plt Count Pending
Sodium Pending
Potassium Pending
Chloride Pending
Carbon Dioxide Pending
BUN Pending
Creatinine Pending
Glucose Pending
Calcium Pending
Vital Signs:
Vital Signs
Temp Pulse Resp BP Pulse Ox
97.5 F 69 18 105/65 96
03/29/25 03:00 03/29/25 03:00 03/29/25 03:00 03/29/25 03:00 03/29/25 03:00
I&O
03/28/25 03/29/25 03/30/25
06:59 06:59 06:59
Intake Total 480 / 480
Balance 480 / 480
[2025-03-29 08:30] LABS: Hematocrit 32.0 % (37.0-47.0); Hemoglobin 10.5 g/dL (12.0-16.0); Mean Corp Hgb Conc. 32.8 g/dL (33.0-37.0); Mean Corpuscular Volume 88.6 fL (81.0-99.0); Platelet Count 215 10^3/uL (130-400); Red Cell Dist. Width 14.9 % (11.5-14.5)
[2025-03-29] MEDS: KCL 20 MEQ PO (08:33)
[2025-03-29] MEDS: THERAGRAN 1 TABLET PO (08:34)
[2025-03-29] MEDS: PROTONIX 40 MG PO (08:34)
[2025-03-29] MEDS: ELIQUIS 2.5 MG PO (08:34)
[2025-03-29] MEDS: LOPRESSOR 12.5 MG PO (08:36)
[2025-03-29] MEDS: SENOKOT-S PO (08:36)
[2025-03-29] MEDS: MIRALAX PO (08:36)
[2025-03-29] MEDS: LIDOCAINE 4% PATCH TOPICAL (08:39)
[2025-03-29 09:23] LABS: Blood Urea Nitrogen 12 mg/dl (7-17); Calcium 7.6 mg/dl (8.4-10.2); Carbon Dioxide 24 mmol/L (22-30); Chloride 109 mmol/L (98-107); Estimated Creatinine Clearance 37 ml/min; Glucose 110 mg/dl (70-99); Magnesium 2.0 mg/dl (1.6-2.3); Potassium 3.6 mmol/L (3.5-5.1); Sodium 138 mmol/L (135-145); eGFR > 60.00
[2025-03-29 10:47] LABS: Folate 6.7 ng/ml (2.76-20)
[2025-03-29 11:26] VITALS: BP 94/54
[2025-03-29] MEDS: OSCAL CAL 500 500 MG PO (12:13)
[2025-03-29] MEDS: LIDOCAINE 4% PATCH 1 PATCH TOPICAL (12:14)
[2025-03-29 12:33] VITALS: BMI 19.4
--- NOTE | 2025-03-29 14:08 | CM ---
CM following for discharge to SNF pending approval. Call placed to Stephania at [facility] for an update. She is going to call [facility] to determine if [facility] will approve short term SNF at [facility].
Await update regarding transfer to [facility] SNF if approved by [facility].
--- NOTE | 2025-03-29 15:10 | WOUNDNOTE ---
[facility] RN note: Prevalence nurse Jovan requested [facility] RN nurse check sacrum. Sacral skin intact. Perianal skin dull red. Protective silicone border foam reapplied to sacrum. Patient is sitting on an air chair cushion eating lunch. Family and RN Sridhar in
room.
--- NOTE | 2025-03-29 15:13 | CM ---
CM contacted by Consuelo at [facility] who has obtained approval from [place] for transfer to the facility today.
TT sent to Dr. Gardiner to make him aware.
Family was advised earlier this week that that transport to [facility] will not be covered by insurance due to the distance of the facility from [facility]. Family to transport in AM.
[place] Report: [id number]
[place] Fax:
[2025-03-29 15:35] VITALS: BP 105/63
[2025-03-29] MEDS: ULTRAM 25 MG PO (16:12)
[2025-03-29] MEDS: RISPERDAL 0.25 MG PO (17:09)
[2025-03-29] MEDS: TYLENOL 650 MG PO (18:23)
[2025-03-29 19:35] VITALS: BP 100/66
[2025-03-29] MEDS: LOPRESSOR PO (20:00)
[2025-03-29] MEDS: REMOVE LIDOCAINE PATCH REMOVE (21:25)
[2025-03-29] MEDS: LIPITOR PO (21:25)
[2025-03-29] MEDS: ELIQUIS PO (21:25)
[2025-03-29] MEDS: REMERON PO (21:26)
--- NOTE | 2025-03-29 23:09 | W.DCSUMMARY ---
Discharge Summary
Discharge Data
Date of Admission: 03/27/25
Date of Discharge: 03/29/25
-
Pending Results: No
Discharge Plan
-
Patient Disposition: Assisted/SNF
Discharge Diagnosis/Procedures: Dementia with behavioral disturbances
Depression
Ambulatory Dysfunction
Acute Kidney Injury Resolved
Arthritis
Constipation
Severe Vitamin D deficiency
Hypocalcemia
Anemia of Chronic Disease
Paroxysmal atrial fibrillation
History Hypertension
Hyperlipidemia
Condition: Fair
Diet: Regular and Supplements
Additional Diets: Ensure Chocolate supplement twice a day
Activity: As tolerated
Driving Restrictions: No driving
Bathing Restrictions: None
Blood Work: Repeat CBC and CMP with primary care provider in 1 week of discharge
Repeat Vitamin D level in one month of discharge.
Other Services: PT and OT
Wound Care: Pressure redistributing chair cushion
Elevate heels off bed with pillow
Activity Restrictions/Additional Instructions:
Follow up with primary care provider at [facility] in 1 week of discharge.
Tylenol prescribed as needed for pain.
Tramadol prescribed as needed for moderate severe pain.
Lidocaine patch prescribed for neck pain/arthritis.
Severe Vitamin D deficiency, high dose weekly supplementation Wednesday Prescribed. Calcium supplementation prescribed for associate hypocalcemia
Multivitamin prescribed for nutrition support.
As needed laxatives prescribed for constipation
Risperdal 0.25 mg QPM prescribed for owning/dementia. Follow up with primary care provider or other healthcare provider involved in care to determine when safe to discontinue.
Home medication Felodipine has been discontinued as blood pressures have been well controlled without.
Please take medications as prescribed/recommended and follow up with primary care provider and/or other healthcare provider involved in your care for refills and/or further adjustment to your medication regimen as necessary.
Referrals:
Preethi Gallardo MD [Family Provider, Internal Medicine]
Prescriptions:
New
ergocalciferol (vitamin D2) [Vitamin D2] 1,250 mcg (50,000 unit) Capsule
1,250 mcg PO Q7D Qty: 10 0RF
lidocaine 4 % Adhesive Patch,Medicated
1 patch topical DAILY Qty: 10 0RF
Rx Instructions:
Neck Pain
polyethylene glycol 3350 17 gram Powder In Packet
17 g PO DAILYPRN PRN (Reason: constipation) Qty: 14 0RF
calcium carbonate 500 mg calcium (1,250 mg) Tablet
500 mg PO DAILY Qty: 30 0RF
sennosides-docusate sodium 8.6-50 mg Tablet
1 tab PO BIDPRN PRN (Reason: constipation) Qty: 14 0RF
multivitamin with folic acid [Tab-A-Eneida] 400 mcg Tablet
1 tab PO DAILY Qty: 30 0RF
acetaminophen 325 mg Tablet
650 mg PO Q4HPRN PRN (Reason: pain/fever/headache) Qty: 100 0RF
tramadol 50 mg Tablet
25 mg PO BIDPRN PRN (Reason: moderate severe pain) Qty: 5 0RF
Continued
omeprazole 20 mg Capsule,Delayed Release(Dr/Ec)
20 mg PO DAILY
metoprolol tartrate 25 mg Tablet
12.5 mg PO BID
lovastatin 20 mg tablet
20 mg PO HS
mirtazapine 7.5 mg Tablet
7.5 mg PO HS Qty: 30 0RF
Eliquis 2.5 mg Tablet
2.5 mg PO BID Qty: 60 0RF
Changed
risperidone 0.25 mg Tablet
0.25 mg PO QPM Qty: 30 0RF
Rx Instructions:
Follow up healthcare provider to determine when safe to discontinue
Discontinued
felodipine 5 mg Tablet Extended Release 24 Hr
5 mg PO DAILY
Discharge Orders:
Discharge Patient (As Directed); Ordered 03/30/25
Ordered By: Jack Gardiner
Discharge Date and Time
Print Language: MOLDOVAN
[2025-03-29 23:11] VITALS: BP 102/70
[2025-03-30 03:17] VITALS: BP 108/72
[2025-03-30 07:44] VITALS: BP 115/65
[2025-03-30] MEDS: THERAGRAN 1 TABLET PO (08:31)
[2025-03-30] MEDS: LOPRESSOR 12.5 MG PO (08:31)
[2025-03-30] MEDS: LIDOCAINE 4% PATCH 1 PATCH TOPICAL (08:31)
[2025-03-30] MEDS: ELIQUIS 2.5 MG PO (08:31)
[2025-03-30] MEDS: OSCAL CAL 500 500 MG PO (08:31)
--- NOTE | 2025-03-30 11:12 | PN.CDI ---
CDI
- -
CDI:
Physician Documentation Request
Admit Date: 03/27/25 17:54
Dear Doctor Abdifatah,
Please review the following and provide your response in the progress notes.
Clinical Indicators:
Pt admitted with BERLIN and dementia.
03/29 Registered Dietitian: ' Pt known to this RD from previous admission...
Met with pt and her son, pts son reports pt's appetite is still decreased, pt consuming little bits of food...
CBW: 102 lbs 11.2 oz BMI 19.4 normal range (03/29), 96 lbs 9 oz (03/19),...
During visit RD able to visulize temporal wasting, protrusion of clavical, apparent ribs, quad and calf muscle wasting.
With < 75% estimated needs > 1 month and observed muscle and fat wasting pt meets AND/ASPEN criteria for moderate protein calorie malnutrition of chronic illness.
Based on the above information and your assessment, which of the following most accurately represents the patient's nutritional status?
Moderate Protein Calorie Malnutrition
Other (please specify)
[place] Criteria (ACP Hospitalist 2017)
2 or more criteria must be present for either
non severe or severe malnutrition
Note that the criteria differs related to the
presence of an acute or chronic illness
Chronic Illness
Energy Intake Non Severe: <75% for >1 month
Severe: <75% for >1 month
Weight Loss Non Severe: 5% over 1 month
7.5% over 3 months
10% over 6 months
20% over 1 year
Severe: >5% over 1 month
>7.5% over 3 months
>10% over 6 months
>20% over 1 year
Body Fat Non Severe: Mild Loss
Severe: Severe Loss
Muscle Mass Non Severe: Mild Loss
Severe: Severe Loss
Fluid Accumulation Non Severe: Mild Accumulation
Severe: Moderate to severe
accumulation
Reduced Store Consultant Strength Non Severe: N/A
Severe: Measurably reduced
Additional criteria that can be used to Determine if Mild or Moderate Malnutrition ([employer]ck Manual 2018)
Use of terms such as suspected, likely, concern for, or probable (associated with a specific diagnosis that is being evaluated, monitored, or treated as if it exists) are acceptable and can be coded in the inpatient setting, when documented at the
time of discharge.
Thank you,
Melinda Villareal RN, BSN
CDI Specialist
[place] [employer]
Please use your independent medical judgment in providing your response.
== END 2025-03-30 10:06 | DRG 682 ==
LOC: 3 WEST ACU 17:54
PROVIDERS: Internal Medicine; Nurse Practitioner; Student in an Organized Health Care Education/Training Program; ADMITTING PHYSICIAN Hospitalist; ATTENDING PHYSICIAN Hospitalist; EMERGENCY PHYSICIAN Emergency Medicine; FAMILY PHYSICIAN Internal Medicine
DX: N17.9 Acute kidney failure, unspecified (principal); G93.41 Metabolic encephalopathy; F03.918 Unspecified dementia, unspecified severity, with other behavioral disturbance; R64 Cachexia; E44.0 Moderate protein-calorie malnutrition; Z68.1 Body mass index [BMI] 19.9 or less, adult; E87.6 Hypokalemia; E86.0 Dehydration; R53.1 Weakness; I48.0 Paroxysmal atrial fibrillation; I10 Essential (primary) hypertension; E78.5 Hyperlipidemia, unspecified; F32.A Depression, unspecified; E83.42 Hypomagnesemia; D63.8 Anemia in other chronic diseases classified elsewhere; E83.51 Hypocalcemia; E86.1 Hypovolemia; Z66 Do not resuscitate; I95.89 Other hypotension; K59.00 Constipation, unspecified; M19.90 Unspecified osteoarthritis, unspecified site; R26.2 Difficulty in walking, not elsewhere classified; W06.XXXA Fall from bed, initial encounter; Z79.01 Long term (current) use of anticoagulants; Z79.899 Other long term (current) drug therapy
CPT/HCPCS: 70450; 72125; 74018; 80048; 80053; 81003; 81015; 82306; 82607; 82728; 82746; 83540; 83550; 83735; 84100; 85025; 85027; 87086; 96365; 96366; 97163; 99285